=== PATIENT | female | born 1945 | race Caucasian/White ===

== ENCOUNTER 2016-10-14 11:20 | Inpatient (IN) ==
[2016-10-14] MEDS ORDERED: 0.9 % Sodium Chloride 1,000 ML IVC ONE (11:47)
--- NOTE | 2016-10-14 12:07 | Emergency Department Note ---
Disposition Clinical Impression: Lower GI bleed Diverticulosis of colon Qualifiers: Diverticulosis bleeding: diverticulosis with bleeding Qualified Code(s): K57.31 - Diverticulosis of large intestine without perforation or abscess with bleeding Anemia Qualifiers: Anemia type: unspecified type Qualified Code(s): D64.9 - Anemia, unspecified Disposition: Admitted As Inpatient Condition: Fair Time of Disposition: 15:19 GI Bleed HPI - General Chief complaint: ED GI Bleed Stated complaint: GI Bleed Source: patient, EMS Limitations: no limitations Nursing Notes Reviewed: Yes Vital Signs Reviewed: Yes - History of Present Illness HPI Narrative: 70-year-old female with a history of anemia presents complaining of blood in her stool as dark red for 3 days. She states that she has been dizzy and nauseated and last night began having bloody diarrhea. overnight she had 10 episodes of bloody diarrhea. She is currently dizzy, nauseated, sharp experiencing palpitations, weak. She denies chest pain, abdominal pain, fevers , chills. She does not take any blood thinners. She does note that she takes iron for her iron deficiency anemia. She had an echo done 1 month ago that she states was within normal limits. She was also put on vitamin D for treatment of her anemia. She occasionally takes ibuprofen but has not taken any recently. She does state that after her bowel movements this morning and she has had more back pain with walking. Patient denies any illness or trauma recently. She has never had a colonoscopy. The patient is adopted and does not know if there is any family history of colon cancer. - Related Data Home Medications Medication Instructions Recorded Confirmed Cholecalciferol (D-3) [Vitamin D] 1,000 unit PO DAILY 10/14/16 10/14/16 Enalapril Maleate [Vasotec] 10 mg PO BID 10/14/16 10/14/16 Ferrous Sulfate [Iron] 325 mg PO BID 10/14/16 10/14/16 Furosemide [Lasix] 40 mg PO DAILY 10/14/16 10/14/16 Naproxen [Naprosyn] 500 mg PO BID 10/14/16 10/14/16 Ranitidine HCl [Zantac] 150 mg PO BID 10/14/16 10/14/16 Allergies Allergy/AdvReac Type Severity Reaction Status Date / Time No Known Allergies Allergy Verified 10/14/16 12:03 Constitutional: Reports: weakness. Denies: fever, chills Cardiovascular: Reports: palpitations, dyspnea on exertion. Denies: chest pain Respiratory: Reports: dyspnea. Denies: cough, wheezes, hemoptysis Gastrointestinal: Reports: nausea, diarrhea. Denies: abdominal pain, vomiting, hematemesis Genitourinary: Denies: dysuria, hematuria Musculoskeletal: Reports: back pain Integumentary: Denies: rash Neurological: Reports: headache, weakness. Denies: numbness Past Medical History - Past Medical History Medical history: Reports: arthritis, GERD, hypertension, other Psychiatric history: Reports: depression - Social History Smoking Status: Never smoker Smokeless Tobacco Status: No Alcohol use: Reports: occasionally Drug use: Reports: none Physical Exam - General Limitations: no limitations General appearance: alert, lethargic, in distress - Head Head exam: atraumatic, normocephalic, normal inspection - Eye Eye exam: Present: PERRL, EOMI, other (pale conjunctiva) - ENT ENT exam: mucous membranes dry - Expanded ENT Exam Mouth exam: Present: other (pale mucous membranes) - Neck Neck exam: Present: normal inspection, full ROM, trachea midline - Chest Chest inspection: Present: normal inspection, symmetric chest wall rise. Absent : tenderness - Respiratory Respiratory exam: Present: normal lung sounds bilaterally. Absent: respiratory distress, wheezes, stridor, accessory muscle use - Cardiovascular Cardiovascular exam: Present: regular rate, normal rhythm, normal heart sounds. Absent: systolic murmur, diastolic murmur - Abdominal Exam Abdominal exam: Present: soft, Non-Tender, normal bowel sounds. Absent: tenderness, distention, guarding, rebound, rigidity - Rectal Exam Optical Instrument Inspector present during exam: No Rectal exam: Present: normal rectal tone, bloody stool. Absent: tenderness - Extremities Exam Extremities exam: Absent: pedal edema - Neurological Exam Neurological exam: Present: alert, oriented X3 - Psychiatric Psychiatric exam: Present: normal affect, normal mood - Skin Skin exam: Present: dry, intact, pallor. Absent: diaphoresis Course Course Narrative: 70-year-old female with a history of anemia presents complaining of blood in her stool as dark red for 3 days. She states that she has been dizzy and nauseated and last night began having bloody diarrhea. overnight she had 10 episodes of bloody diarrhea. She is currently dizzy, nauseated, sharp experiencing palpitations, weak. She denies chest pain, abdominal pain, fevers , chills. She does not take any blood thinners. She does note that she takes iron for her iron deficiency anemia. She had an echo done 1 month ago that she states was within normal limits. She was also put on vitamin D for treatment of her anemia. She occasionally takes ibuprofen but has not taken any recently. She does state that after her bowel movements this morning and she has had more back pain with walking. Patient denies any illness or trauma recently. She has never had a colonoscopy. The patient is adopted and does not know if there is any family history of colon cancer. HGB is 6.4. Renal CT scan shows diverticulosis with no evidence of diverticulitis. On exam patient appears pale with pale conjunctiva and pale mucous membranes. She appears to be in mild distress and lethargic. At times appears to be confused. Blood pressure was in 130s upon arrival however is now in the one teens. She states that yesterday was in the 90s. She is dizzy and confused even at rest. Bright blood with rectal exam. Discussed admission with the hospitalist service , Dr. Willard. He has accepted her for admission. I discussed the case with him he would like to have 2 units of blood type and crossmatched for the patient. I discussed this with the patient and she is agreeable with admission and transfusion. - Reevaluation(s) Reevaluation #1: Discussed the case with Dr. Willard who has accepted the patient to the hospitalist service. Time: 15:00 Vital Signs Temperature 98 F 10/14/16 11:20 Pulse Rate 82 10/14/16 11:20 Respiratory Rate 16 10/14/16 11:20 Blood Pressure 139/60 10/14/16 11:20 O2 Sat by Pulse Oximetry 100 10/14/16 11:20 Temperature 98 F 10/14/16 11:20 Pulse Rate 83 10/14/16 15:00 Respiratory Rate 16 10/14/16 15:00 Blood Pressure 122/67 10/14/16 15:00 O2 Sat by Pulse Oximetry 99 10/14/16 15:00 Oxygen Delivery Oxygen Delivery Room Air GI Bleed - Medical Records Medical records reviewed: Yes I reviewed the patient's medical records. - Lab Data Lab results reviewed: Yes I reviewed the patient's lab results. Result diagrams: 10/14/16 12:08 10/14/16 12:08 Lab Results 10/14/16 10/14/16 10/14/16 Range/Units 12:08 12:08 12:08 WBC 5.8 (4.3-11.1) K/mcL RBC 2.61 L (3.82-4.97) M/mcL Hgb 6.8 L (11.5-15.4) g/dL Hct 22.3 L (35.3-44.9) % MCV 85.4 (83.0-100.0) fL MCH 26.1 L (28.0-33.3) pg MCHC 30.5 L (31.6-35.5) g/dL RDW TNP Plt Count 324 (140-400) K/mcL MPV 8.9 L (9.4-12.4) fL Immature Gran % 0.9 (0-4) % Seg Neutrophils % 68.3 % Lymphocytes % 23.8 % Monocytes % 6.1 % Eosinophils % 0.7 % Basophils % 0.2 % Neutrophils # 4.0 (1.6-8.9) K/mcL Lymphocytes # 1.4 (0.6-4.6) K/mcL Monocytes # 0.4 (0.0-1.3) K/mcL Eosinophils # 0.0 (0.0-0.6) K/mcL Basophils # 0.0 (0.0-0.2) K/mcL Platelet Estimate Normal (Normal) Anisocytosis 1+ A (Not Present) Ovalocytes 1+ A (Not Present) PT 10.6 (9.4-12.1) Seconds INR 1.0 APTT 26.8 (26.0-36.0) Seconds Sodium 139 (136-145) mEq/L Potassium 4.4 (3.5-4.5) mEq/L Chloride 111 H (98-109) mEq/L Carbon Dioxide 22 (19-29) mEq/L BUN 21 H (7-20) mg/dL Creatinine 0.71 (0.57-1.11) mg/dL Est GFR ( Amer) > 60 (> 60) Est GFR (Non-Af Amer) > 60 (> 60) BUN/Creatinine Ratio 30 H (6-26) Glucose 109 H (70-99) mg/dL Calculated Osmolality 292 (280-300) Lactic Acid (0.5-2.2) mmol/L Calcium 9.1 (8.6-10.8) mg/dL Total Bilirubin 0.3 (0.2-1.2) mg/dL AST 12 (5-34) Units/L ALT 13 (0-55) Units/L Alkaline Phosphatase 73 (38-126) Units/L Serum Total Protein 5.6 L (6.0-8.3) g/dL Albumin 3.2 L (3.5-5.0) g/dL Globulin 2.4 (2.4-3.5) g/dL Albumin/Globulin Ratio 1.3 (1.1-2.2) Blood Type Antibody Screen Crossmatch 10/14/16 10/14/16 Range/Units 12:08 12:08 WBC (4.3-11.1) K/mcL RBC (3.82-4.97) M/mcL Hgb (11.5-15.4) g/dL Hct (35.3-44.9) % MCV (83.0-100.0) fL MCH (28.0-33.3) pg MCHC (31.6-35.5) g/dL RDW Plt Count (140-400) K/mcL MPV (9.4-12.4) fL Immature Gran % (0-4) % Seg Neutrophils % % Lymphocytes % % Monocytes % % Eosinophils % % Basophils % % Neutrophils # (1.6-8.9) K/mcL Lymphocytes # (0.6-4.6) K/mcL Monocytes # (0.0-1.3) K/mcL Eosinophils # (0.0-0.6) K/mcL Basophils # (0.0-0.2) K/mcL Platelet Estimate (Normal) Anisocytosis (Not Present) Ovalocytes (Not Present) PT (9.4-12.1) Seconds INR APTT (26.0-36.0) Seconds Sodium (136-145) mEq/L Potassium (3.5-4.5) mEq/L Chloride (98-109) mEq/L Carbon Dioxide (19-29) mEq/L BUN (7-20) mg/dL Creatinine (0.57-1.11) mg/dL Est GFR ( Amer) (> 60) Est GFR (Non-Af Amer) (> 60) BUN/Creatinine Ratio (6-26) Glucose (70-99) mg/dL Calculated Osmolality (280-300) Lactic Acid 0.9 (0.5-2.2) mmol/L Calcium (8.6-10.8) mg/dL Total Bilirubin (0.2-1.2) mg/dL AST (5-34) Units/L ALT (0-55) Units/L Alkaline Phosphatase (38-126) Units/L Serum Total Protein (6.0-8.3) g/dL Albumin (3.5-5.0) g/dL Globulin (2.4-3.5) g/dL Albumin/Globulin Ratio (1.1-2.2) Blood Type A POSITIVE Antibody Screen NEGATIVE Crossmatch See Detail - Radiology Data Radiology results reviewed: Yes I reviewed the patient's radiology results. Abdomen/Pelvis CT 10/14/16 11:50 IMPRESSION: No acute intra-abdominal process is appreciated. Colonic diverticulosis without convincing evidence of acute diverticulitis detected. If symptoms persist or worsen the study could be repeated with oral contrast to better evaluate the bowel wall. D/ / Obed Story MD / Obed Story MD Interpreting Provider: Obed Story MD - EKG Data EKG attestation: Yes I reviewed and interpreted this EKG. EKG results narrative: sinus rhythm with sinus arrhythmia vr 73bpm, pr 173ms, qt 361ms When compared to previous EKG there are: previous EKG unavailable Critical Care Time Critical Care Time: Yes Total Critical Care Time: 35 Attestation: Critical care time for this patient exclusive of any billable procedures was 35 minutes. Attestation Statement - Attestation Attestation: Patient was seen with resident physician. I reviewed the history, physical, assessment and plan, and agree with the findings. I also personally evaluated this patient and had [id number] time with this patient. 70-year-old female presents to the emergency department with multiple episodes of dark blood per rectum. Patient states that she has had numerous episodes of dark bloody diarrhea, and now has gotten dizzy. She also feels lightheaded and fatigued. She denies significant abdominal pains that she has some cramps or before she goes to the bathroom. On exam patient appears pale her heart is regular rhythm and rate. Abdomen is soft and no tenderness could be elicited with palpation. Lungs are clear. Extremities are unremarkable. We will do workup for GI bleed and admit for same. Patient's CT scan revealed diverticulosis. Her blood levels were significantly lower than it should be, and transfusion of 2 units was started while in the emergency department. Her blood pressure remained over 100 systolic while she was here and this was closely monitored. Hospitalist was notified and admission was arranged. I agree with resident physician assessment and plan. Critical care time for this patient was 35 minutes.
[2016-10-14 12:15] LABS: Basophils % 0.2 %; Eosinophils % 0.7 %; Hematocrit 22.3 % (35.3-44.9); Hemoglobin 6.8 g/dL (11.5-15.4); Immature Granulocytes % 0.9 % (0-4); Lymphocytes # 1.4 K/mcL (0.6-4.6); Lymphocytes % 23.8 %; Mean Corpuscular HGB Conc 30.5 g/dL (31.6-35.5); Mean Corpuscular Hemoglobin 26.1 pg (28.0-33.3); Mean Corpuscular Volume 85.4 fL (83.0-100.0); Mean Platelet Volume 8.9 fL (9.4-12.4); Monocytes # 0.4 K/mcL (0.0-1.3); Monocytes % 6.1 %; Platelet Count 324 K/mcL (140-400); Red Blood Count 2.61 M/mcL (3.82-4.97); Segmented Neutrophils % 68.3 %
[2016-10-14 12:21] LABS: Prothrombin Time 10.6 Seconds (9.4-12.1)
[2016-10-14 12:23] LABS: Activated Partial Thrombo Time 26.8 Seconds (26.0-36.0)
[2016-10-14 12:29] LABS: Alanine Aminotransferase 13 Units/L (0-55); Albumin 3.2 g/dL (3.5-5.0); Albumin/Globulin Ratio 1.3 (1.1-2.2); Alkaline Phosphatase 73 Units/L (38-126); Aspartate Amino Transferase 12 Units/L (5-34); BUN/Creatinine Ratio 30 (6-26); Bilirubin,Total 0.3 mg/dL (0.2-1.2); Blood Urea Nitrogen 21 mg/dL (7-20); Calcium 9.1 mg/dL (8.6-10.8); Carbon Dioxide 22 mEq/L (19-29); Chloride 111 mEq/L (98-109); Globulin 2.4 g/dL (2.4-3.5); Glucose 109 mg/dL (70-99); Osmolality,Calculated 292 (280-300); Potassium 4.4 mEq/L (3.5-4.5); Sodium 139 mEq/L (136-145); Total Protein 5.6 g/dL (6.0-8.3); eGFR For African Americans > 60 (> 60); eGFR For Non-African Americans > 60 (> 60)
[2016-10-14 12:30] LABS: Anisocytosis 1+ (Not Present); Ovalocytes 1+ (Not Present); Platelet Estimate Normal (Normal)
[2016-10-14] MEDS ORDERED: Naloxone 0.4 MG/ML INJ IVP PRN (16:43)
[2016-10-14] MEDS ORDERED: Ondansetron 4 MG/2 ML VIAL IVP PRN (16:43)
[2016-10-14] MEDS ORDERED: 0.9 % Sodium Chloride 250 ML ONE ×2 (16:54→20:12)
--- NOTE | 2016-10-14 17:22 | Internal Med History&Physical ---
<Sharri Craven M - Last Filed: 10/14/16 21:13> Date of Encounter: 10/14/16 Time of Encounter: 17:10 Assessment and Plan (1) Lower GI bleed Current visit: Yes Status: Acute Patient with multiple episodes of bloody stools over the last several days. Now with lightheadedness, weakness and shortness of breath. Blood seen on rectal exam. Hgb 6.8. NPO Transfuse 2u Packed RBCs check Hgb/Hct Q6 hours Consult to Surgery for GI bleed, spoke with Dr. Luque, they plan to see patient in the morning. (2) Anemia Current visit: Yes Status: Acute Patient with multiple episodes of bloody stool over the last several days, with weakness, shortness of breath and lightheadedness. Hgb found to be 6.8. Hemodynamically stable with blood pressure 110s-130s and HR in 80s Orders to transfuse 2u of packed red blood cells. check Hgb/Hct Q6 hours titrate oxygen to maintain O2 saturation > 92% Qualifiers: Anemia type: iron deficiency Iron deficiency anemia type: chronic blood loss Qualified Code(s): D50.0 - Iron deficiency anemia secondary to blood loss (chronic) (3) Diverticulosis of colon Current visit: Yes Status: Acute Patient with multiple episodes of bloody stools. CT abdomen/pelvis showed colonic diverticulosis without convincing evidence of acute diverticulitis. Consult to surgery for GI bleed. NPO IV fluids 0.9NS at 125mL/hr. Qualifiers: Diverticulosis bleeding: diverticulosis with bleeding Qualified Code(s): K57.31 - Diverticulosis of large intestine without perforation or abscess with bleeding (4) DVT prophylaxis Current visit: Yes Status: Acute Up to chair BID, and ambulate with assistance as tolerated anti-embolic stockings Pharmacologic prophylaxis contraindicated in patient with active GI bleed. Internal Medicine - H&P: HPI Chief complaint: Rectal bleeding Admitted From: Emergency Dept Plans for Post Hospital Care: Home History of present illness: Ms. Gonzalez is a 70 year old female with history of anemia, hypertension and arthritis presented to the ED after having multiple episodes of bloody stools over the last several days and increasing dizziness and lightheadedness. She reports she first noted the bloody stool 3 days ago. She was able to continue to go about her normal activities and even went to work yesterday. However, overnight last night she reports she had 10 episodes of bloody stool, and this morning she felt so weak, dizzy, lightheaded and short of breath that she called for the squad. She denies any nausea, vomiting or abdominal pain. She denies any chest pain or palpitations. Of note, she was worked up for dyspnea on exertion about a month ago and was found to be anemic at that time. She was started on iron. She also takes naproxen daily for her arthritis. Evaluation in the ED was significant for Hgb of 6.8. Her vital signs were stable with blood pressures running 110s-130s, heart rate in 80s. CT of the abdomen revealed diverticulosis. On exam, patient appears pale, with pale conjunctiva. She is drowsy, but alert when aroused, oriented, and in no distress. Heart has regular rate and rhythm and lungs are clear to ascultation. Abdomen has normal bowel sounds and mild diffuse tenderness. Past Med Surg Social Fam HX - Past Medical History Medical history: arthritis, GERD, hypertension, other Psychiatric history: depression - Past Surgical History Surgical History: other (tubal ligation) - Social History Smoking Status: Never smoker Smokeless Tobacco Status: No Alcohol use: occasionally Drug use: none - Family History Mother History Unknown: Yes Adopted: Yes Internal Medicine - H&P: Meds Cholecalciferol (D-3) [Vitamin D] 1,000 unit PO DAILY 10/14/16 [History] Enalapril Maleate [Vasotec] 10 mg PO BID 10/14/16 [History] Ferrous Sulfate [Iron] 325 mg PO BID 10/14/16 [History] Furosemide [Lasix] 40 mg PO DAILY 10/14/16 [History] Naproxen [Naprosyn] 500 mg PO BID 10/14/16 [History] Ranitidine HCl [Zantac] 150 mg PO BID 10/14/16 [History] Allergies No Known Allergies Allergy (Verified 10/14/16 12:03) All Systems PM: A 10-system review of systems was performed and is negative for pertinent findings except as documented above in the HPI. - Constitutional Constitutional: weakness, no chills, no fever(s), no night sweats - EENT Eyes: no change in vision, no discharge, no pain, no photophobia Ears: no ear discharge, no ear pain, no tinnitus Nose, mouth and throat: dry mouth, no dysphagia, no nasal discharge, no neck pain, no sore throat - Cardiovascular Cardiovascular ROS IM: dyspnea on exertion, lightheadedness, no chest pain, no diaphoresis, no dyspnea, no palpitations, no syncope - Respiratory Respiratory: dyspnea on exertion, no cough, no dyspnea, no wheezing, no excessive phlegm production - Gastrointestinal Gastrointestinal: diarrhea, hematochezia, no abdominal pain, no hematemesis, no melena, no nausea, no vomiting - Genitourinary Genitourinary: no change in urinary stream, no dysuria, no flank pain, no hematuria - Musculoskeletal Musculoskeletal ROS IM: no numbness, no tingling - Integumentary Integumentary IM: no rash, no unusual bruising - Neurological Neurological ROS: no confusion, no convulsions, no focal weakness, no numbness, no tingling, no tremor(s) - Hematologic/Lymphatic Hematologic/Lymphatic: no easy bruising - Constitutional Vitals: Temp Pulse Resp BP Pulse Ox 98.5 F 91 16 137/73 100 10/14/16 17:01 10/14/16 17:01 10/14/16 17:01 10/14/16 17:01 10/14/16 17:01 Internal Med - H&P Results - Labs CBC & Chem 7: 10/14/16 12:08 10/14/16 12:08 <Chapito Willard - Last Filed: 10/15/16 09:23> Date of Encounter: 10/15/16 Internal Medicine - H&P: HPI History of present illness: Ms. Gonzalez is a 70 year old female All Systems PM: A 10-system review of systems was performed and is negative for pertinent findings except as documented above in the HPI. - Constitutional Vitals: Temp Pulse Resp BP Pulse Ox 98.8 F 68 16 127/81 98 10/15/16 08:01 10/15/16 08:01 10/15/16 08:01 10/15/16 08:01 10/15/16 08:01 General appearance: Present: A&O X 3 Exam: Pale - Eye Eye exam: Present: PERRL, conjuntiva pink, sclera anicteric Pupils: Present: PERRL - Respiratory Respiratory exam: Present: CTAB. Absent: accessory muscle use, rales, rhonchi, wheezes - Cardiovascular Cardiovascular exam: Present: RRR, +S1, +S2. Absent: diastolic murmur, gallop, rubs, systolic murmur - GI/Abdominal GI/Abdominal exam: Present: normal bowel sounds, soft, no peritoneal signs. Absent: distended, tenderness - Extremities Exam Extremities exam: Present: warm, radial pulses palpable and symetrical. Absent : calf tenderness, cyanotic, pedal edema - Neurological Exam Neurological exam: Present: CN II-XII intact, oriented X3, no focal deficits. Absent: pronater drift, facial droop, speech deficit - Skin Skin exam: Present: dry, intact Internal Med - H&P Results - Labs CBC & Chem 7: 10/15/16 01:08 10/14/16 12:08 Labs: Short CBC 10/15/16 Range/Units 01:08 WBC 5.8 (4.3-11.1) K/mcL Hgb 8.2 L (11.5-15.4) g/dL Hct 25.9 L (35.3-44.9) % Plt Count 265 (140-400) K/mcL Neutrophils # 2.9 (1.6-8.9) K/mcL - Attending Attestation I examined this patient and my medical decision-making was reviewed with the Advanced Practice Provider. I agree with the documented findings, disposition and treatment plan as described except to the extent set forth below. Patient presented to the hospital with rectal bleeding. On exam she is pale ill appearing. Heart is regular S1-S2. Abdomen soft nontender nondistended. Plan: Transfuse 2 units PRBC. Check CBC every 12 hours. Consult surgery.
[2016-10-14] MEDS ORDERED: 0.9 % Sodium Chloride 1,000 ML IVC SCH (17:45)
[2016-10-14] MEDS: Pantoprazole 40 MG VIAL IVP SCH (18:50)
[2016-10-14] MEDS ORDERED: *HR* HYDROcodone/Acet 5/325 mg TABLET PO ONE (22:51)
[2016-10-14] MEDS: 0.9 % Sodium Chloride 1,000 ML IVC SCH (23:16)
[2016-10-15 01:16] LABS: Eosinophils # 0.1 K/mcL (0.0-0.6); Eosinophils % 1.6 %; Hematocrit 25.9 % (35.3-44.9); Hemoglobin 8.2 g/dL (11.5-15.4); Immature Granulocytes % 0.5 % (0-4); Lymphocytes # 2.3 K/mcL (0.6-4.6); Lymphocytes % 40.6 %; Mean Corpuscular HGB Conc 31.7 g/dL (31.6-35.5); Mean Corpuscular Hemoglobin 27.3 pg (28.0-33.3); Mean Corpuscular Volume 86.3 fL (83.0-100.0); Mean Platelet Volume 8.7 fL (9.4-12.4); Monocytes # 0.4 K/mcL (0.0-1.3); Monocytes % 6.9 %; Neutrophils # 2.9 K/mcL (1.6-8.9); Nucleated Red Blood Cells 0.3 /100 WBC (0); Platelet Count 265 K/mcL (140-400); Red Cell Distribution Width 21.4 % (11.5-14.5); Segmented Neutrophils % 50.4 %
[2016-10-15] MEDS: Pantoprazole 40 MG VIAL IVP SCH (07:29)
[2016-10-15] MEDS ORDERED: *HR* Morphine 2 MG/ML SYRINGE IVP PRN (09:40)
[2016-10-15] MEDS: 0.9 % Sodium Chloride 1,000 ML IVC SCH ×2 (09:44→11:38)
[2016-10-15] MEDS: *HR* HYDROcodone/Acet 5/325 mg TABLET PO PRN ×2 (11:37→19:57)
[2016-10-15] MEDS ORDERED: Polyethylene Glycol 3350 255 GM POWDER PO ONE (12:09)
--- NOTE | 2016-10-15 15:13 | General Surgery Consult Note ---
Date of Encounter: 10/15/16 Time of Encounter: 10:45 Assessment and Plan (1) Melena Current Visit: Yes Status: Acute complaints of melena - unsure if due to her iron supplements or due to bleeding Patient has never previously had a colonoscopy Will plan colonoscopy and EGD with IV medication, risks and benefits discussed with the patient and she wishes to proceed. We will do the EGD since she has been on naproxen daily for years Clear liquid diet today, bowel prep today, nothing by mouth at midnight (2) Anemia Current Visit: Yes Status: Acute Patient has been transfused 2 units of blood. Hemoglobins appear to be stable currently Qualifiers: Anemia type: iron deficiency Iron deficiency anemia type: chronic blood loss Qualified Code(s): D50.0 - Iron deficiency anemia secondary to blood loss (chronic) (3) Diverticulosis of colon Current Visit: Yes Status: Acute Diverticulosis of the colon seen on CT scan Qualifiers: Diverticulosis bleeding: diverticulosis with bleeding Qualified Code(s): K57.31 - Diverticulosis of large intestine without perforation or abscess with bleeding History of Present Illness Consult date: 10/15/16 History of present illness: Patient is a 70-year-old female who is never previously had a colonoscopy. She does not know her biological family history as she is adopted. Patient denies any abdominal pain. She has taken 200 mg of naproxen every day for years and also is on a Zantac for this. She denies any heartburn or reflux symptoms. She states that this past Sunday she started having initially black dark stools. She thought this was due to the iron that she has been taking for approximately month now due to anemia diagnosed by her primary care. She has also been taking vitamin D. The black stools continued up to Sunday and she had about 10 episodes of diarrhea on Sunday as well. She denied any abdominal pain at that time. She has been short of breath and somewhat dizzy. He denies any bright red blood per rectum. Past Med Surg Social Fam HX - Past Medical History Source: patient Medical history: arthritis, GERD, hypertension, other (Detached retina, cataracts) Psychiatric history: depression - Past Surgical History Surgical History: other (tubal ligation, tonsils and adenoidectomy, bilateral eye surgery as a child) - Social History Smoking Status: Never smoker Smokeless Tobacco Status: No Alcohol use: occasionally Drug use: none - Family History Mother History Unknown: Yes Adopted: Yes Medications and Allergies Cholecalciferol (D-3) [Vitamin D] 1,000 unit PO DAILY 10/14/16 [History] Enalapril Maleate [Vasotec] 10 mg PO BID 10/14/16 [History] Ferrous Sulfate [Iron] 325 mg PO BID 10/14/16 [History] Furosemide [Lasix] 40 mg PO DAILY 10/14/16 [History] Naproxen [Naprosyn] 500 mg PO BID 10/14/16 [History] Ranitidine HCl [Zantac] 150 mg PO BID 10/14/16 [History] Allergies No Known Allergies Allergy (Verified 10/14/16 12:03) Review of Systems All systems PM: reviewed and no additional remarkable complaints except as stated All systems PM: A 10-system review of systems was performed and is negative for pertinent findings except as documented above in the HPI. - Constitutional lethargy, malaise, no fever(s), no night sweats, no weakness - EENT Nose, mouth and throat: as per HPI - Cardiovascular no chest pain - Respiratory dyspnea on exertion - Gastrointestinal diarrhea, melena, no abdominal pain, no cramping, no dyspepsia, no heartburn, no hematochezia General Surgery Exam Initial Vital Signs Temp Pulse Resp BP Pulse Ox 98 F 82 16 139/60 100 10/14/16 11:20 10/14/16 11:20 10/14/16 11:20 10/14/16 11:20 10/14/16 11:20 - General physical appearance well developed, well nourished, no distress, no pain - Eyes PERRL, normal ocular movement - ENT normal mucosa, atraumatic, normocephalic - Neck trachea midline - Respiratory normal respiratory effort, clear to auscultation - Cardiovascular Cardiovascular exam: Present: RRR, no murmurs/rubs/gallops - Abdomen Abdomen general surgery: Present: bowel sounds present, soft, non tender. Absent: distended, guarding, rebound - Integumentary Integumentary general surgery: Present: warm and dry, no abnormal pigmentation - Neurologic Present: CN 2-12 grossly intact - Musculoskeletal Present: normal gait, normal posture - Psychiatric Psychiatric general surgery: Present: A&Ox3, speech is normal Exam Initial Vital Signs Temp Pulse Resp BP Pulse Ox 98 F 82 16 139/60 100 10/14/16 11:20 10/14/16 11:20 10/14/16 11:20 10/14/16 11:20 10/14/16 11:20 Results - Labs 10/15/16 01:08 10/14/16 12:08 Short CBC 10/15/16 Range/Units 01:08 WBC 5.8 (4.3-11.1) K/mcL Hgb 8.2 L (11.5-15.4) g/dL Hct 25.9 L (35.3-44.9) % Plt Count 265 (140-400) K/mcL Neutrophils # 2.9 (1.6-8.9) K/mcL Vital Signs Temp Pulse Resp BP Pulse Ox 10/15/16 10:24 97.8 F 82 16 115/71 97 10/15/16 08:01 98.8 F 68 16 127/81 98 10/15/16 03:21 97.6 F 77 16 111/69 96 10/14/16 23:11 98.0 F 78 14 124/78 97 10/14/16 20:38 98.0 F 81 14 125/78 97 10/14/16 20:25 97.7 F 81 16 138/79 100 10/14/16 20:13 97.7 F 81 16 138/79 100 10/14/16 19:50 0 0/0 10/14/16 17:16 98.6 F 88 16 137/73 100 10/14/16 17:01 98.5 F 91 16 137/73 100 Intake and Output 10/14/16 10/15/16 10/15/16 23:59 07:59 15:59 Intake Total 1200 / 1200 0 / 0 1840 / 1840 Output Total 700 / 700 450 / 450 200 / 200 Balance 500 / 500 -450 / -450 1640 / 1640 Intake: IV Fluids 1000 / 1000 0.9 % Sodium Chloride 1, 1000 / 1000 000 ML @ 100 mls/hr IVC . Q10H [facility] Rx#:[id number] Oral 0 / 0 840 / 840 Blood Product 1200 / 1200 Rbcs Leuko Poor As-1 850 / 850 Unit [id number] Rbcs Leuko Poor As-3 350 / 350 Unit [id number] Output: Urine 700 / 700 450 / 450 200 / 200 Other: Meal Lunch Percent of Meal Consumed 100% Stool Size Small Stool Consistency formed Stool Color Brown # Bowel Movements 0 Weight 76.566 kg Blood Glucose* 102 - Imaging CT scan - abdomen: report reviewed CT scan - pelvis: report reviewed Consult Discharge Plan - Plan Referrals: Chaz Mccabe MD [Primary Care Provider] -
--- NOTE | 2016-10-15 15:38 | Internal Med Progress Note ---
Date of Encounter: 10/15/16 Time of Encounter: 15:36 - Assessment and plan (1) Anemia Current Visit: Yes Status: Acute Assessment and plan: Severe symptomatic anemia, Hb on admission 6.8, has received 2 units of prbc. Hb today 8.2, will continue monitoring and transfuse accordingly. Qualifiers: Anemia type: iron deficiency Iron deficiency anemia type: chronic blood loss Qualified Code(s): D50.0 - Iron deficiency anemia secondary to blood loss (chronic) (2) DVT prophylaxis Current Visit: Yes Status: Acute Assessment and plan: No heparin due to bleeding. (3) Lower GI bleed Current Visit: Yes Status: Acute Assessment and plan: Will undergo colonoscopy tomorrow. Colon prep today. (4) Melena Current Visit: Yes Status: Acute Assessment and plan: EGD tomorrow. NPO after midnight. - Time Spent With Patient 25 - 35 minutes - Subjective Interval history: This is my first encounter with the patient. She denies chest pain, shortness of breath. Never had endoscopic studies done. - Constitutional Vitals: Temp Pulse Resp BP Pulse Ox 98.2 F 76 16 118/74 98 10/15/16 14:35 10/15/16 14:35 10/15/16 14:35 10/15/16 14:35 10/15/16 14:35 General appearance: Present: A&O X 3 - Head Head exam: Present: atraumatic, normocephalic - Eye Eye exam: Present: PERRL, conjuntiva pink, sclera anicteric Pupils: Present: PERRL - Neck Neck exam general surgery: Present: supple, trachea midline. Absent: lymphadenopathy - Respiratory Respiratory exam: Present: CTAB. Absent: accessory muscle use, rales, rhonchi, wheezes - Cardiovascular Cardiovascular exam: Present: RRR, +S1, +S2. Absent: diastolic murmur, gallop, rubs, systolic murmur - GI/Abdominal GI/Abdominal exam: Present: normal bowel sounds, soft, no peritoneal signs. Absent: distended, tenderness - Extremities Exam Extremities exam: Present: warm, radial pulses palpable and symetrical. Absent : calf tenderness, cyanotic, pedal edema - Neurological Exam Neurological exam: Present: CN II-XII intact, oriented X3, no focal deficits. Absent: pronater drift, facial droop, speech deficit - Skin Skin exam: Present: dry, intact Internal Medicine: Result - Labs CBC & Chem 7: 10/15/16 01:08 10/14/16 12:08 Labs: Short CBC 10/15/16 Range/Units 01:08 WBC 5.8 (4.3-11.1) K/mcL Hgb 8.2 L (11.5-15.4) g/dL Hct 25.9 L (35.3-44.9) % Plt Count 265 (140-400) K/mcL Neutrophils # 2.9 (1.6-8.9) K/mcL - ABG Interpretation ABG results: PT/INR, D-dimer PT 10.6 Seconds (9.4-12.1) 10/14/16 12:08 Consult Discharge Plan - Plan Referrals: Chaz Mccabe MD [Primary Care Provider] -
--- NOTE | 2016-10-16 00:17 | Electrocardiograph Report ---
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
[2016-10-16] MEDS: *HR* HYDROcodone/Acet 5/325 mg TABLET PO PRN ×3 (01:59→22:36)
[2016-10-16] MEDS: 0.9 % Sodium Chloride 1,000 ML IVC SCH ×2 (02:00→23:44)
[2016-10-16 04:35] LABS: Eosinophils # 0.1 K/mcL (0.0-0.6); Eosinophils % 1.5 %; Hematocrit 26.6 % (35.3-44.9); Hemoglobin 8.3 g/dL (11.5-15.4); Immature Granulocytes % 0.6 % (0-4); Lymphocytes % 42.9 %; Mean Corpuscular HGB Conc 31.2 g/dL (31.6-35.5); Mean Corpuscular Hemoglobin 27.6 pg (28.0-33.3); Mean Corpuscular Volume 88.4 fL (83.0-100.0); Mean Platelet Volume 9.1 fL (9.4-12.4); Monocytes # 0.4 K/mcL (0.0-1.3); Monocytes % 7.8 %; Neutrophils # 2.2 K/mcL (1.6-8.9); Nucleated Red Blood Cells 0.4 /100 WBC (0); Platelet Count 299 K/mcL (140-400); Red Blood Count 3.01 M/mcL (3.82-4.97); Red Cell Distribution Width 22.1 % (11.5-14.5); Segmented Neutrophils % 47.2 %
[2016-10-16 04:50] LABS: BUN/Creatinine Ratio 8 (6-26); Calcium 9.2 mg/dL (8.6-10.8); Carbon Dioxide 23 mEq/L (19-29); Chloride 113 mEq/L (98-109); Glucose 95 mg/dL (70-99); Osmolality,Calculated 295 (280-300); Potassium 3.5 mEq/L (3.5-4.5); Sodium 144 mEq/L (136-145); eGFR For African Americans > 60 (> 60); eGFR For Non-African Americans > 60 (> 60)
[2016-10-16 04:51] LABS: Blood Urea Nitrogen 5 mg/dL (7-20)
[2016-10-16] MEDS: Pantoprazole 40 MG VIAL IVP SCH (07:43)
--- NOTE | 2016-10-16 08:17 | Internal Med Progress Note ---
<Smai Trejo - Last Filed: 10/16/16 13:55> Date of Encounter: 10/16/16 Time of Encounter: 08:17 - Assessment and plan (1) Blood loss anemia Current Visit: Yes Status: Acute Assessment and plan: S/p two units of PRBCs, hgb stable at 8.3, no sign of active bleeding, endoscopy consulted, EGD/Colonoscopy today. (2) Melena Current Visit: Yes Status: Acute Assessment and plan: Hx of chronic NSAID use, hgb drop is consistent with several episodes of melena , s/p two units of PRBCs, hgb stable, upper/lower endoscopy today. (3) DVT prophylaxis Current Visit: Yes Status: Acute Assessment and plan: IPCs. - Subjective Interval history: Pt seen and examined, last bowel movement was last night and it was normal, no black/bloody stools. No abd pain. - Constitutional Vitals: Temp Pulse Resp BP Pulse Ox 97.9 F 70 14 119/73 96 10/16/16 07:45 10/16/16 07:45 10/16/16 07:45 10/16/16 07:45 10/16/16 07:45 General appearance: Present: cooperative, A&O X 3, pleasant, no acute distress, answers questions appropriately - Head Head exam: Present: atraumatic, normocephalic - Eye Eye exam: Present: PERRL, conjuntiva pink, sclera anicteric Pupils: Present: PERRL - Neck Neck exam general surgery: Present: supple, trachea midline. Absent: lymphadenopathy - Respiratory Respiratory exam: Present: CTAB. Absent: accessory muscle use, rales, rhonchi, wheezes - Cardiovascular Cardiovascular exam: Present: RRR, +S1, +S2. Absent: diastolic murmur, gallop, rubs, systolic murmur - GI/Abdominal GI/Abdominal exam: Present: normal bowel sounds, soft, no peritoneal signs. Absent: distended, tenderness - Extremities Exam Extremities exam: Present: warm, radial pulses palpable and symetrical. Absent : calf tenderness, cyanotic, pedal edema - Neurological Exam Neurological exam: Present: CN II-XII intact, oriented X3, no focal deficits. Absent: pronater drift, facial droop, speech deficit - Skin Skin exam: Present: dry, intact Internal Medicine: Result - Labs CBC & Chem 7: 10/16/16 03:53 10/16/16 03:53 Labs: Short CBC 10/16/16 Range/Units 03:53 WBC 4.8 (4.3-11.1) K/mcL Hgb 8.3 L (11.5-15.4) g/dL Hct 26.6 L (35.3-44.9) % Plt Count 299 (140-400) K/mcL Neutrophils # 2.2 (1.6-8.9) K/mcL BMP 10/16/16 03:53 Sodium 144 Potassium 3.5 Chloride 113 H Carbon Dioxide 23 BUN 5 L D Creatinine 0.63 Glucose 95 Calcium 9.2 - ABG Interpretation ABG results: PT/INR, D-dimer PT 10.6 Seconds (9.4-12.1) 10/14/16 12:08 Consult Discharge Plan - Plan Referrals: Chaz Mccabe MD [Primary Care Provider] - <Kimo Salter - Last Filed: 10/16/16 17:21> - Assessment and plan (1) Anemia Current Visit: Yes Status: Acute Qualifiers: Anemia type: iron deficiency Iron deficiency anemia type: chronic blood loss Qualified Code(s): D50.0 - Iron deficiency anemia secondary to blood loss (chronic) (2) DVT prophylaxis Current Visit: Yes Status: Acute (3) Lower GI bleed Current Visit: Yes Status: Acute (4) Melena Current Visit: Yes Status: Acute - Constitutional Vitals: Temp Pulse Resp BP Pulse Ox 98.6 F 69 12 132/64 100 10/16/16 16:46 10/16/16 16:46 10/16/16 16:46 10/16/16 16:46 10/16/16 16:46 Internal Medicine: Result - Labs CBC & Chem 7: 10/16/16 03:53 10/16/16 03:53 Labs: Short CBC 10/16/16 Range/Units 03:53 WBC 4.8 (4.3-11.1) K/mcL Hgb 8.3 L (11.5-15.4) g/dL Hct 26.6 L (35.3-44.9) % Plt Count 299 (140-400) K/mcL Neutrophils # 2.2 (1.6-8.9) K/mcL BMP 10/16/16 03:53 Sodium 144 Potassium 3.5 Chloride 113 H Carbon Dioxide 23 BUN 5 L D Creatinine 0.63 Glucose 95 Calcium 9.2 - ABG Interpretation ABG results: PT/INR, D-dimer PT 10.6 Seconds (9.4-12.1) 10/14/16 12:08 - Attending Attestation I agree with the physical examination findings, assessment and plan documented by the resident Dr. Sami Trejo. I examined the patient independently. Ms. Gonzalez was admitted due to GI bleeding, she did receive blood transfusion ( 2 units of prbc upon admission), her hemoglobin is stable. We will continue monitoring her hemoglobin and follow-up endoscopic studies.
[2016-10-16] MEDS ORDERED: *HR* Promethazine 25 MG/ML VIAL IVP ONE (13:57)
[2016-10-16] MEDS ORDERED: Tetracaine/Benzocaine/Butamben 200MG/SPRAY (100SPY/BOT) MM ONE (13:57)
[2016-10-16] MEDS ORDERED: Simethicone 40 MG/0.6 ML MLS IR ONE (13:57)
[2016-10-16] MEDS ORDERED: *HR* Midazolam HCl 5 MG/5 ML VIAL IVP ONE (15:19)
[2016-10-16] MEDS ORDERED: *HR* FentaNYL (PF) 100 MCG/2 ML VIAL ONE (15:19)
[2016-10-16] MEDS: *HR* Midazolam HCl 5 MG/5 ML VIAL IVP PRN ×2 (15:48→16:00)
[2016-10-16] MEDS ORDERED: *HR* FentaNYL (PF) 100 MCG/2 ML VIAL IVP PRN (16:00)
--- NOTE | 2016-10-16 16:36 | Event Note ---
Date of Encounter: 10/16/16 Time of Encounter: 16:34 EGD with no signs of bleeding, only abnormal z-line, hiatal hernia and hyeremia of the stomach colonoscopy showed diverticulosis, old blood in transverse, descending and sigmoid, none in cecum no masses or lesions, no obvious bleeding recommend repeat colonoscopy in 10 yrs high fiber diet, daily fiber supplement such as gummy fibers 2 po daily or metamucil capsules 2 po daily
[2016-10-16] MEDS: Psyllium 1 PACKET POWD.PACK PO SCH (22:25)
[2016-10-17 04:50] LABS: Basophils % 0.2 %; Eosinophils # 0.1 K/mcL (0.0-0.6); Eosinophils % 1.6 %; Hematocrit 25.7 % (35.3-44.9); Hemoglobin 7.9 g/dL (11.5-15.4); Immature Granulocytes % 0.3 % (0-4); Lymphocytes % 34.2 %; Mean Corpuscular HGB Conc 30.7 g/dL (31.6-35.5); Mean Corpuscular Hemoglobin 27.2 pg (28.0-33.3); Mean Corpuscular Volume 88.6 fL (83.0-100.0); Mean Platelet Volume 8.7 fL (9.4-12.4); Monocytes # 0.5 K/mcL (0.0-1.3); Monocytes % 8.2 %; Neutrophils # 3.2 K/mcL (1.6-8.9); Platelet Count 298 K/mcL (140-400); Red Cell Distribution Width 21.9 % (11.5-14.5); Segmented Neutrophils % 55.5 %
[2016-10-17] MEDS: 0.9 % Sodium Chloride 1,000 ML IVC SCH (07:33)
[2016-10-17] MEDS: Psyllium 1 PACKET POWD.PACK PO SCH ×3 (07:48→20:38)
[2016-10-17] MEDS: Pantoprazole 40 MG VIAL IVP SCH (07:48)
--- NOTE | 2016-10-17 10:04 | General Surgery Progress Note ---
Date of Encounter: 10/17/16 Time of Encounter: 09:45 - Assessment and Plan (1) Blood loss anemia Current Visit: Yes Status: Acute s/p EGD- small hiatal hernia, irregular Z-line. Biopsies taken. May call the surgical office in 1-2 weeks for pathology s/p colonoscopy- diverticulosis of the sigmoid and descending colon High fiber diet life-long Metamucil supplements daily Surgery will sign off. Thank you for allowing us to participate in the care of this patient. Please call with any further questions/concerns. (2) Diverticulosis of colon Current Visit: Yes Status: Acute Continue high fiber diet life-long Metamucil supplements daily Qualifiers: Diverticulosis bleeding: diverticulosis with bleeding Qualified Code(s): K57.31 - Diverticulosis of large intestine without perforation or abscess with bleeding Subjective Patient reports: feels better, tolerating a regular diet, voiding w/o difficulty , flatus, afebrile Objective Vital Signs - Last 8 Hours Temp Pulse Resp BP Pulse Ox 10/17/16 08:28 98.8 F 81 16 147/86 96 10/17/16 07:58 94 L 10/17/16 03:39 98.1 F 67 15 104/54 94 L Intake and Output 10/16/16 10/17/16 10/17/16 23:59 07:59 15:59 Intake Total 1000.0 / 1000.0 818 / 818 480 / 480 Output Total 1300 / 1300 700 / 700 200 / 200 Balance -300.0 / -300.0 118 / 118 280 / 280 Intake: IV Fluids 1000.0 / 1000.0 268 / 268 0.9 % Sodium Chloride 1, 1000.0 / 1000.0 268 / 268 000 ML @ 50 mls/hr IVC . Q20H [facility] Rx#:[id number] Oral 0 / 0 550 / 550 480 / 480 Output: Urine 1300 / 1300 700 / 700 200 / 200 Other: Meal Dinner Breakfast Percent of Meal Consumed 0% 100% Weight 76.1 kg Blood Glucose* 81 Patient Weight 10/17/16 23:59 Weight 76.1 kg - General physical appearance well developed, well nourished, no distress - Eyes normal ocular movement - ENT normal mucosa, atraumatic, normocephalic - Neck Neck exam: trachea midline - Respiratory normal expansion, normal respiratory effort, clear to auscultation - Cardiovascular Cardiovascular exam: Present: RRR - Abdomen Abdomen: Present: bowel sounds present, soft, non tender - Neurologic CN 2-12 grossly intact - Musculoskeletal normal gait, normal posture - Psychiatric oriented to time, oriented to person, oriented to place, speech is normal, memory intact - Labs 10/17/16 04:27 10/16/16 03:53 - VTE Documentation of Mechanical Device: Graduated compression elastic hosiery Consult Discharge Plan - Plan Additional Instructions: High fiber diet life-long Metamucil supplements daily Referrals: Chaz Mccabe MD [Primary Care Provider] - Daphnie Luque MD [Partnered Physician] - (call for biopsy results in 1-2 weeks; no need for follow-up)
[2016-10-17] MEDS ORDERED: 0.9 % Sodium Chloride 1,000 ML IVC SCH (11:45)
[2016-10-17 12:26] LABS: Hematocrit 27.7 % (35.3-44.9); Hemoglobin 8.7 g/dL (11.5-15.4)
--- NOTE | 2016-10-17 17:09 | Internal Med Progress Note ---
<Sami Trejo - Last Filed: 10/17/16 16:52> Date of Encounter: 10/17/16 Time of Encounter: 08:40 - Assessment and plan (1) Blood loss anemia Current Visit: Yes Status: Acute Assessment and plan: S/p two units of PRBCs, endoscopy consulted, EGD- small hiatal hernia, irregular Z-line. Biopsies taken. Colonoscopy- diverticulosis of the sigmoid and descending colon, surgery recommended High fiber diet life-long and Metamucil supplements daily, hgb today was stable but pt is somewhat symptomatic with lightheadedness and fatigue, orthostatic VS was normal, IV fluid was given, recheck labs in AM, likely d/c tmw. (2) Melena Current Visit: Yes Status: Acute Assessment and plan: Hx of chronic NSAID use, hgb drop is consistent with several episodes of melena , s/p two units of PRBCs, hgb stable, upper/lower endoscopy reviewed. (3) DVT prophylaxis Current Visit: Yes Status: Acute Assessment and plan: IPCs. - Subjective Interval history: Pt seen and examined this AM, pt was little bit sleepy but also complaints of lightheadedness, not feeling well today, also tired. - Constitutional Vitals: Temp Pulse Resp BP Pulse Ox 97.9 F 78 16 132/76 97 10/17/16 15:24 10/17/16 15:24 10/17/16 15:24 10/17/16 15:24 10/17/16 15:24 General appearance: Present: cooperative, A&O X 3, no acute distress, answers questions appropriately - Head Head exam: Present: atraumatic, normocephalic - Eye Eye exam: Present: PERRL, conjuntiva pink, sclera anicteric Pupils: Present: PERRL - Neck Neck exam general surgery: Present: supple, trachea midline. Absent: lymphadenopathy - Respiratory Respiratory exam: Present: CTAB. Absent: accessory muscle use, rales, rhonchi, wheezes - Cardiovascular Cardiovascular exam: Present: RRR, +S1, +S2. Absent: diastolic murmur, gallop, rubs, systolic murmur - GI/Abdominal GI/Abdominal exam: Present: normal bowel sounds, soft, no peritoneal signs. Absent: distended, tenderness - Extremities Exam Extremities exam: Present: warm, radial pulses palpable and symetrical. Absent : calf tenderness, cyanotic, pedal edema - Neurological Exam Neurological exam: Present: CN II-XII intact, oriented X3, no focal deficits. Absent: pronater drift, facial droop, speech deficit - Skin Skin exam: Present: dry, intact Internal Medicine: Result - Labs CBC & Chem 7: 10/17/16 12:15 10/16/16 03:53 Labs: Short CBC 10/17/16 10/17/16 Range/Units 04:27 12:15 WBC 5.8 (4.3-11.1) K/mcL Hgb 7.9 L 8.7 L (11.5-15.4) g/dL Hct 25.7 L 27.7 L (35.3-44.9) % Plt Count 298 (140-400) K/mcL Neutrophils # 3.2 (1.6-8.9) K/mcL - ABG Interpretation ABG results: PT/INR, D-dimer PT 10.6 Seconds (9.4-12.1) 10/14/16 12:08 - VTE Documentation of Mechanical Device: Graduated compression elastic hosiery Consult Discharge Plan - Plan Additional Instructions: High fiber diet life-long Metamucil supplements daily Referrals: Daphnie Luque MD [Partnered Physician] - (call for biopsy results in 1-2 weeks; no need for follow-up) Chaz Mccabe MD [Primary Care Provider] - <Kimo Salter - Last Filed: 10/17/16 17:19> - Assessment and plan (1) Anemia Current Visit: Yes Status: Acute Qualifiers: Anemia type: iron deficiency Iron deficiency anemia type: chronic blood loss Qualified Code(s): D50.0 - Iron deficiency anemia secondary to blood loss (chronic) (2) DVT prophylaxis Current Visit: Yes Status: Acute (3) Lower GI bleed Current Visit: Yes Status: Acute (4) Melena Current Visit: Yes Status: Acute - Constitutional Vitals: Temp Pulse Resp BP Pulse Ox 97.9 F 78 16 132/76 97 10/17/16 15:24 10/17/16 15:24 10/17/16 15:24 10/17/16 15:24 10/17/16 15:24 Internal Medicine: Result - Labs CBC & Chem 7: 10/17/16 12:15 10/16/16 03:53 Labs: Short CBC 10/17/16 10/17/16 Range/Units 04:27 12:15 WBC 5.8 (4.3-11.1) K/mcL Hgb 7.9 L 8.7 L (11.5-15.4) g/dL Hct 25.7 L 27.7 L (35.3-44.9) % Plt Count 298 (140-400) K/mcL Neutrophils # 3.2 (1.6-8.9) K/mcL - ABG Interpretation ABG results: PT/INR, D-dimer PT 10.6 Seconds (9.4-12.1) 10/14/16 12:08 - Attending Attestation Mrs. Gonzalez has been examined in rounds. I agree with the physical examination findings, assessment and plan as documented by the resident Dr. Sami Trejo. Patient was dizzy today. She underwent endoscopic studies yesterday and no evidence of active bleeding was noted. Hemoglobin today dropped, however we repeated the hemoglobin level today at noon and it was essentially unchanged compared to yesterday. We will continue monitoring the patient since she is being very dizzy. We will evaluate orthostatic vital signs. We will continue monitoring her hemoglobin tomorrow in a.m. We will stop IV fluids for now.
[2016-10-18] MEDS ORDERED: Acetaminophen 325 MG TABLET PO PRN (00:32)
[2016-10-18 05:29] LABS: Basophils % 0.3 %; Eosinophils # 0.1 K/mcL (0.0-0.6); Eosinophils % 1.8 %; Hematocrit 26.6 % (35.3-44.9); Hemoglobin 8.5 g/dL (11.5-15.4); Immature Granulocytes % 0.3 % (0-4); Lymphocytes # 1.9 K/mcL (0.6-4.6); Lymphocytes % 30.8 %; Mean Corpuscular Hemoglobin 28.3 pg (28.0-33.3); Mean Corpuscular Volume 88.7 fL (83.0-100.0); Mean Platelet Volume 9.5 fL (9.4-12.4); Monocytes # 0.5 K/mcL (0.0-1.3); Monocytes % 8.3 %; Neutrophils # 3.7 K/mcL (1.6-8.9); Platelet Count 349 K/mcL (140-400); Red Cell Distribution Width 21.1 % (11.5-14.5); Segmented Neutrophils % 58.5 %
[2016-10-18 05:52] LABS: BUN/Creatinine Ratio 10 (6-26); Blood Urea Nitrogen 7 mg/dL (7-20); Calcium 9.6 mg/dL (8.6-10.8); Carbon Dioxide 23 mEq/L (19-29); Chloride 110 mEq/L (98-109); Glucose 110 mg/dL (70-99); Osmolality,Calculated 291 (280-300); Potassium 3.8 mEq/L (3.5-4.5); Sodium 141 mEq/L (136-145); eGFR For African Americans > 60 (> 60); eGFR For Non-African Americans > 60 (> 60)
[2016-10-18] MEDS: Psyllium 1 PACKET POWD.PACK PO SCH (07:59)
[2016-10-18] MEDS: Pantoprazole 40 MG VIAL IVP SCH (07:59)
[2016-10-18 10:38] VITALS: BP 137/79
--- NOTE | 2016-10-18 11:10 | Discharge Summary ---
<Sami Trejo - Last Filed: 10/18/16 14:31> Date of Encounter: 10/18/16 Time of Encounter: 11:08 - Discharge Diagnosis (1) Blood loss anemia Priority: Primary Status: Acute (2) Melena Priority: Secondary Status: Acute (3) HTN (hypertension) Priority: Secondary Status: Acute Qualifiers: Qualified Code(s): I10 - Essential (primary) hypertension (4) DVT prophylaxis Priority: Secondary Status: Acute - Discharge Medications Prescriptions: Psyllium [Metamucil Fiber Singles Packet] 1 packet PO TID #15 powd.pack Home Medications: Cholecalciferol (D-3) [Vitamin D] 1,000 unit PO DAILY 10/14/16 [History] Enalapril Maleate [Vasotec] 10 mg PO BID 10/14/16 [History] Ferrous Sulfate [Iron] 325 mg PO BID 10/14/16 [History] Furosemide [Lasix] 40 mg PO DAILY 10/14/16 [History] Ranitidine HCl [Zantac] 150 mg PO BID 10/14/16 [History] Psyllium [Metamucil Fiber Singles Packet] 1 packet PO TID #15 powd.pack [Rx] Allergies/Adverse Reactions: Allergies No Known Allergies Allergy (Verified 10/14/16 12:03) Date of admission: 10/14/16 17:25 Primary care physician: Chaz Mccabe MD Consults: Surgery for endoscopy Discharging clinician: Sami Trejo Anticipated date of discharge: 10/18/16 - Patient Status Disposition: Home, Self-Care Condition: Good Functional capacity at discharge: uses cane/walker (fall precaution) Overall status at discharge: patient is progressing back to baseline - Discharge Instructions Follow Up With: Daphnie Luque MD [Partnered Physician] - (call for biopsy results in 1-2 weeks; no need for follow-up) Chaz Mccabe MD [Primary Care Provider] - 10/20/16 10:00 am (F/u in a week for hospital d/c f/u.) Additional Instructions: High fiber diet life-long Metamucil supplements daily - Diet and Activity Activity: resume usual activities as tolerated Diet: other (high fiber diet life-long) Hospital course: Ms. Gonzalez is a 70 year old female with hx of HTN who came to the ER with cc of melena, hgb was less than 7 when she presented, hx of chronic NSAID use for multiple joint pains, fecal occult test was positive, never had endoscopy in the past, surgery was consulted for EGD and colonoscopy, and EGD showed small hiatal hernia, irregular Z-line, biopsies was taken, colonoscopy showed diverticulosis of the sigmoid and descending colon, surgery recommended high fiber diet life-long and metamucil supplements daily, after two units of prbc her hgb stabilized and her symptoms improved, therefore she will be d/c today in stable condition. - Time Spent with Patient Total time spent providing and/or coordinating discharge services: - Constitutional Vitals: Temp Pulse Resp BP Pulse Ox 98.2 F 89 18 137/79 94 L 10/18/16 10:37 10/18/16 10:37 10/18/16 10:37 10/18/16 10:37 10/18/16 10:37 General appearance: Present: cooperative, A&O X 3, no acute distress, answers questions appropriately - Head Head exam: Present: atraumatic, normocephalic - Eye Eye exam: Present: PERRL, conjuntiva pink, sclera anicteric Pupils: Present: PERRL - Neck Neck exam general surgery: Present: supple, trachea midline. Absent: lymphadenopathy - Respiratory Respiratory exam: Present: CTAB. Absent: accessory muscle use, rales, rhonchi, wheezes - Cardiovascular Cardiovascular exam: Present: RRR, +S1, +S2. Absent: diastolic murmur, gallop, rubs, systolic murmur - GI/Abdominal GI/Abdominal exam: Present: normal bowel sounds, soft, no peritoneal signs. Absent: distended, tenderness - Extremities Exam Extremities exam: Present: warm, radial pulses palpable and symetrical. Absent : calf tenderness, cyanotic, pedal edema - Neurological Exam Neurological exam: Present: CN II-XII intact, oriented X3, no focal deficits. Absent: pronater drift, facial droop, speech deficit - Skin Skin exam: Present: dry, intact - VTE Documentation of Mechanical Device: Graduated compression elastic hosiery <Kimo Salter - Last Filed: 10/18/16 17:22> - Discharge Diagnosis (1) Anemia Status: Acute Qualifiers: Anemia type: iron deficiency Iron deficiency anemia type: chronic blood loss Qualified Code(s): D50.0 - Iron deficiency anemia secondary to blood loss (chronic) (2) DVT prophylaxis Status: Acute (3) Lower GI bleed Status: Acute (4) Melena Status: Acute Date of admission: 10/14/16 17:25 Primary care physician: Chaz Mccabe MD Hospital course: Ms. Gonzalez is a 70 year old female - Time Spent with Patient Total time spent providing and/or coordinating discharge services: - Constitutional Vitals: Temp Pulse Resp BP Pulse Ox 98.2 F 89 18 137/79 94 L 10/18/16 10:37 10/18/16 10:37 10/18/16 10:37 10/18/16 10:37 10/18/16 10:37 - Attending Attestation Mrs. Gonzalez has been examined in rounds. I agree with the physical examination findings, assessment and plan as documented by the resident Dr. Sami Trejo. Patient is stable for discharge, follow biopsy results as outpatient. Hb stable.
== END 2016-10-18 11:48 | disposition home or self-care (01) | DRG 379 ==
LOC: 3ANU 11:20 → EMEROO 11:20 → 3ANU 19:50
PROVIDERS: ADMIT Internal Medicine; ATTEND Internal Medicine
PROC: ENDOEBX (2016-10-16 15:30)
PROC: ENDOCBX (2016-10-16 15:30)

== ENCOUNTER 2018-05-15 13:01 | Observation (INO) ==
[2018-05-15] MEDS ORDERED: Ondansetron 4 MG/2 ML VIAL IVP ONE (13:15)
--- NOTE | 2018-05-15 13:19 | Emergency Department Note ---
Disposition Clinical Impression: Dyspnea Ascites Qualifiers: Ascites type: malignant Qualified Code(s): R18.0 - Disposition: Still a Patient Condition: Fair Time of Disposition: 17:57 General Adult HPI - General Chief complaint: ED Abdominal Pain Stated complaint: cancer patient, needs cath to drain stomach Time Seen by Provider: 05/15/18 13:04 Source: family Limitations: no limitations Nursing Notes Reviewed: Yes Vital Signs Reviewed: Yes - History of Present Illness HPI Narrative: 72yo female presents from [facility] for admission for placement of indwelling peritoneal catheter. PAtient has pancreatic cancer with mets to liver, stomach, and BL lungs. She had a ascites drained 6 days ago with progressive dyspnea and abdominal bloating since. Worse when laying supine. She has decrease in PO intake; no appetite and poor tolerance of fluids. Her nausea is improved with zofran. No Hx COPD, CAD, or ACS. ROS: Pos: as above Neg: fever, chills, chest pain, palpitations. Pain Scale: 8 - Related Data Home Medications Medication Instructions Recorded Confirmed Ascorbate Calcium [Vitamin C] 500 mg PO QPM 05/05/18 05/15/18 Calcium Carbonate/Vitamin D3 1 tab PO QPM 05/05/18 05/15/18 [Calcium 500 + Vit D Caplet] Cetirizine HCl [Zyrtec] 10 mg PO DAILY 05/05/18 05/15/18 Enalapril Maleate [Vasotec] 10 mg PO BID 05/05/18 05/15/18 Ferrous Sulfate [Iron] 325 mg PO QPM 05/05/18 05/15/18 Insulin Glargine,Hum.rec.anlog 50 units SQ HS 05/05/18 05/15/18 [Lantus Solostar] Insulin LISPRO [HumaLOG] 8 units SQ TIDWM MDD plus sliding 05/05/18 05/15/18 scale PARoxetine HCl [Paroxetine HCl] 10 mg PO DAILY 05/05/18 05/15/18 Ranitidine HCl [Acid Roll Contour Grinder] 150 mg PO DAILY 05/05/18 05/15/18 Dronabinol [Marinol] 5 mg PO DAILY 05/15/18 05/15/18 Furosemide [Lasix] 40 mg PO BID PRN 05/15/18 05/15/18 Ibuprofen [Ibu] 600 mg PO Q6H PRN 05/15/18 05/15/18 Spironolactone [Aldactone] 50 mg PO BID 05/15/18 05/15/18 Previous Rx's Medication Instructions Recorded Metoclopramide [Reglan] 5 mg PO QIDAC PRN 7 Days #30 vial 05/10/18 Ondansetron [Zofran] 4 mg PO Q6HR PRN 7 Days #30 vial 05/10/18 OxyCODONE Immed Rel [Roxicodone 5 5 mg PO Q6H PRN 7 Days #30 tablet 05/10/18 MG] Sennosides/Docusate Sodium [Senna 1 each PO BID 10 Days #20 tablet 05/10/18 Plus] Allergies Allergy/AdvReac Type Severity Reaction Status Date / Time No Known Allergies Allergy Verified 05/05/18 13:41 Past Medical History - Past Medical History Medical history: Reports: arthritis, diabetes, fibromyalgia, GERD, hypertension , other Surgical history: Reports: other Psychiatric history: Reports: depression - Social History Smoking Status: Never smoker Smokeless Tobacco Status: No Alcohol use: Reports: rarely Drug use: Reports: none Physical Exam - General Limitations: no limitations General appearance: alert Course Course Narrative: Followed by Dr. 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 She had paracentesis recently secondary to her ascites. Suspect her symptoms are secondary to worsening ascites. Discussed madhu patient with the admitting hospitalist who agrees to accept the patient for IR consultation as well as continued evaluation of her decreased appetite and weakness. Chest X-Ray 05/15/18 13:14 IMPRESSION: Hypoaeration with right lower lobe atelectasis or infiltrate. Scoliosis. D/ / 05/15/2018 13:52:10 Humphrey Tello MD / [email or web address] Interpreting Provider: Humphrey Tello MD Abdomen/Pelvis CT 05/15/18 13:22 IMPRESSION: 1. No significant interval change since 05/05/2018 of multiple liver metastases and peritoneal carcinomatosis associated with large volume abdominal ascites. 2. Interval increase in size of a large right pleural effusion. 3. Moderate hiatal hernia. D/ / 05/15/2018 14:47:13 Nadia Ocasio MD / [email or web address] Interpreting Provider: Nadia Ocasio MD Vital Signs Temperature 97.7 F 05/15/18 13:02 Pulse Rate 101 05/15/18 13:02 Respiratory Rate 16 05/15/18 13:02 Blood Pressure 126/67 05/15/18 13:02 O2 Sat by Pulse Oximetry 91 05/15/18 13:02 Temperature 98.9 F 05/15/18 15:57 Pulse Rate 107 05/15/18 15:57 Respiratory Rate 16 05/15/18 15:57 Blood Pressure 117/73 05/15/18 15:57 O2 Sat by Pulse Oximetry 93 05/15/18 15:57 Oxygen Delivery Oxygen Delivery Room Air Medical Decision Making - Lab Data Result diagrams: 05/15/18 13:20 05/15/18 13:20 Lab Results 05/15/18 05/15/18 05/15/18 Range/Units 13:20 13:20 13:20 WBC 12.1 H D (4.3-11.1) K/mcL RBC 4.36 (3.82-4.97) M/mcL Hgb 13.3 (11.5-15.4) g/dL Hct 39.7 (35.3-44.9) % MCV 91.1 (83.0-100.0) fL MCH 30.5 (28.0-33.3) pg MCHC 33.5 (31.6-35.5) g/dL RDW 12.0 (11.5-14.5) % Plt Count 443 H (140-400) K/mcL MPV 10.0 (9.4-12.4) fL Immature Gran % 0.5 (0-4) % Seg Neutrophils % 77.8 % Lymphocytes % 10.7 % Monocytes % 10.7 % Eosinophils % 0.1 % Basophils % 0.2 % Neutrophils # 9.4 H (1.6-8.9) K/mcL Lymphocytes # 1.3 (0.6-4.6) K/mcL Monocytes # 1.3 (0.0-1.3) K/mcL Eosinophils # 0.0 (0.0-0.6) K/mcL Basophils # 0.0 (0.0-0.2) K/mcL PT (9.4-12.1) Seconds INR APTT (26.0-36.0) Seconds Sodium 129 L (136-145) mEq/L Potassium 4.1 (3.5-5.1) mEq/L Chloride 90 L (98-107) mEq/L Carbon Dioxide 21 L (23-29) mEq/L BUN 16 (8-23) mg/dL Creatinine 0.77 (0.60-1.20) mg/dL Est GFR ( Amer) > 60 (> 60) Est GFR (Non-Af Amer) > 60 (> 60) BUN/Creatinine Ratio 21 (6-26) Glucose 407 H (70-105) mg/dL POC Glucose (70-99) mg/dL Calculated Osmolality 286 (280-300) Lactic Acid (0.5-2.2) mmol/L Calcium 10.2 (8.6-10.3) mg/dL Total Bilirubin 0.5 (0.3-1.0) mg/dL Direct Bilirubin 0.1 (0.0-0.2) mg/dL Indirect Bilirubin 0.4 (0.0-1.2) mg/dL AST 6 L (13-39) Units/L ALT 5 L (7-52) Units/L Alkaline Phosphatase 152 H (34-104) Units/L Troponin I < 0.03 (< 0.04) ng/mL B-Natriuretic Peptide 55 (Less than 100) pg/mL Serum Total Protein 6.1 L (6.4-8.9) g/dL Albumin 3.1 L (3.5-5.7) g/dL Globulin 3.0 (2.4-3.5) g/dL Albumin/Globulin Ratio 1.0 L (1.1-2.2) Lipase < 3 L (11-82) Units/L 05/15/18 05/15/18 05/15/18 Range/Units 13:20 14:07 14:55 WBC (4.3-11.1) K/mcL RBC (3.82-4.97) M/mcL Hgb (11.5-15.4) g/dL Hct (35.3-44.9) % MCV (83.0-100.0) fL MCH (28.0-33.3) pg MCHC (31.6-35.5) g/dL RDW (11.5-14.5) % Plt Count (140-400) K/mcL MPV (9.4-12.4) fL Immature Gran % (0-4) % Seg Neutrophils % % Lymphocytes % % Monocytes % % Eosinophils % % Basophils % % Neutrophils # (1.6-8.9) K/mcL Lymphocytes # (0.6-4.6) K/mcL Monocytes # (0.0-1.3) K/mcL Eosinophils # (0.0-0.6) K/mcL Basophils # (0.0-0.2) K/mcL PT 13.2 H (9.4-12.1) Seconds INR 1.2 APTT 28.6 (26.0-36.0) Seconds Sodium (136-145) mEq/L Potassium (3.5-5.1) mEq/L Chloride (98-107) mEq/L Carbon Dioxide (23-29) mEq/L BUN (8-23) mg/dL Creatinine (0.60-1.20) mg/dL Est GFR ( Amer) (> 60) Est GFR (Non-Af Amer) (> 60) BUN/Creatinine Ratio (6-26) Glucose (70-105) mg/dL POC Glucose 356 H (70-99) mg/dL Calculated Osmolality (280-300) Lactic Acid 1.0 (0.5-2.2) mmol/L Calcium (8.6-10.3) mg/dL Total Bilirubin (0.3-1.0) mg/dL Direct Bilirubin (0.0-0.2) mg/dL Indirect Bilirubin (0.0-1.2) mg/dL AST (13-39) Units/L ALT (7-52) Units/L Alkaline Phosphatase (34-104) Units/L Troponin I (< 0.04) ng/mL B-Natriuretic Peptide (Less than 100) pg/mL Serum Total Protein (6.4-8.9) g/dL Albumin (3.5-5.7) g/dL Globulin (2.4-3.5) g/dL Albumin/Globulin Ratio (1.1-2.2) Lipase (11-82) Units/L Attestation Statement - Attestation Attestation: I examined this patient and my medical decision-making was reviewed with the Resident Physician. I agree with the documented findings, disposition and treatment plan as described except to the extent set forth below. Findings consistent with nausea and vomiting related to metastatic cancer. Patient was sent if for paracentesis. Will admit for further management and paracentesis by interventional radiology.
[2018-05-15 13:55] LABS: Basophils % 0.2 %; Eosinophils % 0.1 %; Hematocrit 39.7 % (35.3-44.9); Hemoglobin 13.3 g/dL (11.5-15.4); Immature Granulocytes % 0.5 % (0-4); Lymphocytes # 1.3 K/mcL (0.6-4.6); Lymphocytes % 10.7 %; Mean Corpuscular HGB Conc 33.5 g/dL (31.6-35.5); Mean Corpuscular Hemoglobin 30.5 pg (28.0-33.3); Mean Corpuscular Volume 91.1 fL (83.0-100.0); Monocytes # 1.3 K/mcL (0.0-1.3); Monocytes % 10.7 %; Neutrophils # 9.4 K/mcL (1.6-8.9); Platelet Count 443 K/mcL (140-400); Red Blood Count 4.36 M/mcL (3.82-4.97); Segmented Neutrophils % 77.8 %
[2018-05-15 14:04] LABS: INR 1.2; Prothrombin Time 13.2 Seconds (9.4-12.1)
[2018-05-15 14:07] LABS: Activated Partial Thrombo Time 28.6 Seconds (26.0-36.0)
[2018-05-15 14:12] LABS: Troponin I < 0.03 ng/mL (< 0.04)
[2018-05-15] MEDS ORDERED: *HR* Promethazine 25 MG/ML VIAL IVP ONE (14:58)
[2018-05-15 15:11] LABS: Alanine Aminotransferase 5 Units/L (7-52); Albumin 3.1 g/dL (3.5-5.7); Alkaline Phosphatase 152 Units/L (34-104); Aspartate Amino Transferase 6 Units/L (13-39); BUN/Creatinine Ratio 21 (6-26); Bilirubin,Direct 0.1 mg/dL (0.0-0.2); Bilirubin,Indirect 0.4 mg/dL (0.0-1.2); Bilirubin,Total 0.5 mg/dL (0.3-1.0); Blood Urea Nitrogen 16 mg/dL (8-23); Calcium 10.2 mg/dL (8.6-10.3); Carbon Dioxide 21 mEq/L (23-29); Chloride 90 mEq/L (98-107); Glucose 407 mg/dL (70-105); Lipase < 3 Units/L (11-82); Osmolality,Calculated 286 (280-300); Potassium 4.1 mEq/L (3.5-5.1); Sodium 129 mEq/L (136-145); Total Protein 6.1 g/dL (6.4-8.9); eGFR For Non-African Americans > 60 (> 60)
[2018-05-15] MEDS ORDERED: Acetaminophen 325 MG TABLET PO PRN (15:24)
[2018-05-15] MEDS ORDERED: *HR* HYDROcodone/Acet 5/325 mg TABLET PO PRN (15:24)
[2018-05-15] MEDS ORDERED: Naloxone 0.4 MG/ML INJ IVP PRN (15:24)
[2018-05-15] MEDS ORDERED: Ondansetron 4 MG/2 ML VIAL IVP PRN (15:26)
[2018-05-15] MEDS ORDERED: D5% in Water 1,000 ML IVC PRN (15:27)
[2018-05-15] MEDS ORDERED: Dextrose Gel 15 GM/37.5 ML TUBE PO PRN ×2 (15:27)
[2018-05-15] MEDS ORDERED: *HR* Dextrose 50 % in Water (Syg) 50 ML SYRINGE IVP PRN (15:27)
--- NOTE | 2018-05-15 15:43 | Internal Med History&Physical ---
Date of Encounter: 05/15/18 Time of Encounter: 15:43 Internal Medicine - H&P: HPI Chief complaint: Abdominal pain Admitted From: Emergency Dept Plans for Post Hospital Care: Hospice - Home History of present illness: Ms. Gonzalez is a 72 year old female with history of metastatic pancreatic cancer with liver metastases, who was sent in from oncology office for evaluation of recurrent ascites and placement of possible indwelling peritoneal catheter. Patient was just discharged from our hospital about 5 days ago after receiving paracentesis and liver biopsy, that confirmed metastatic pancreatic cancer, and she presented for her initial visit with oncology today. She reports worsening upper abdominal pain, mostly in right and left upper quadrant, associated with significant nausea and dry heaving. She also has anorexia, recent weight loss and generalized weakness, unable to get out of bed or ambulate independently. She has significant constipation secondary to pain medications. She does have home health services, her 80s at bedside, awaiting hospice care at home. Past Med Surg Social Fam HX - Past Medical History Source: patient, old records reviewed Medical history: arthritis, cancer, diabetes, fibromyalgia, GERD, hypertension, other Additional medical history: diabetes type 1, chronic fatigue, andrew nuñez, diverticulosis Psychiatric history: depression - Past Surgical History Surgical History: other Additional surgical history: bilateral eye surgery, T&A, colonoscopy - Social History Smoking Status: Never smoker Smokeless Tobacco Status: No Alcohol use: rarely Drug use: none Current living situation: Home - Independent Activity Level: Uses cane/walker, Wheelchair bound Recent Out of Country Travel Within the Last 8 Weeks: No Exposure or Possible Exposure to Illness During Travel: No - Additional Family History Additional family history: Patient is adopted, does not know her family history. Internal Medicine - H&P: Meds Ascorbate Calcium [Vitamin C] 500 mg PO QPM 05/05/18 [History] Calcium Carbonate/Vitamin D3 [Calcium 500 + Vit D Caplet] 1 tab PO QPM 05/05/18 [History] Cetirizine HCl [Zyrtec] 10 mg PO DAILY 05/05/18 [History] Enalapril Maleate [Vasotec] 10 mg PO BID 05/05/18 [History] Ferrous Sulfate [Iron] 325 mg PO QPM 05/05/18 [History] Insulin Glargine,Hum.rec.anlog [Lantus Solostar] 50 units SQ HS 05/05/18 [ History] Insulin LISPRO [HumaLOG] 8 units SQ TIDWM MDD plus sliding scale 05/05/18 [ History] PARoxetine HCl [Paroxetine HCl] 10 mg PO DAILY 05/05/18 [History] Ranitidine HCl [Acid Machining Engineer] 150 mg PO DAILY 05/05/18 [History] Metoclopramide [Reglan] 5 mg PO QIDAC PRN 7 Days #30 vial 05/10/18 [Rx] Ondansetron [Zofran] 4 mg PO Q6HR PRN 7 Days #30 vial 05/10/18 [Rx] OxyCODONE Immed Rel [Roxicodone 5 MG] 5 mg PO Q6H PRN 7 Days #30 tablet [Rx] Sennosides/Docusate Sodium [Senna Plus] 1 each PO BID 10 Days #20 tablet [Rx] Dronabinol [Marinol] 5 mg PO DAILY 05/15/18 [History] Furosemide [Lasix] 40 mg PO BID PRN 05/15/18 [History] Ibuprofen [Ibu] 600 mg PO Q6H PRN 05/15/18 [History] Spironolactone [Aldactone] 50 mg PO BID 05/15/18 [History] 3 Allergy/AdvReac Type Severity Reaction Status Date / Time No Known Allergies Allergy Verified 05/05/18 13:41 All Systems PM: A 10-system review of systems was performed and is negative for pertinent findings except as documented above in the HPI. - Constitutional Constitutional: fatigue, weakness, weight loss, no chills, no fever(s), no night sweats - EENT Eyes: no change in vision, no discharge, no pain, no photophobia Ears: no ear discharge, no ear pain, no tinnitus Nose, mouth and throat: no dysphagia, no nasal discharge, no neck pain, no sore throat - Cardiovascular Cardiovascular ROS IM: no chest pain, no diaphoresis, no dyspnea, no lightheadedness, no palpitations, no syncope - Respiratory Respiratory: no cough, no dyspnea, no wheezing, no excessive phlegm production - Gastrointestinal Gastrointestinal: abdominal pain, bloating, change in bowel habits, constipation , nausea - Genitourinary Genitourinary: no change in urinary stream, no dysuria, no flank pain, no hematuria - Musculoskeletal Musculoskeletal ROS IM: no numbness, no tingling - Integumentary Integumentary IM: no rash, no unusual bruising - Neurological Neurological ROS: no confusion, no convulsions, no focal weakness, no numbness, no tingling, no tremor(s) - Hematologic/Lymphatic Hematologic/Lymphatic: no easy bruising - Constitutional Vitals: Temp Pulse Resp BP Pulse Ox 98.2 F 97 16 116/79 93 05/15/18 13:14 05/15/18 14:53 05/15/18 14:53 05/15/18 14:53 05/15/18 14:53 General appearance: Present: mild distress (due to nausea), A&O X 3, answers questions appropriately Exam: . - Head Head exam: Present: atraumatic, normocephalic - Eye Eye exam: Present: PERRL, conjuntiva pink, sclera anicteric Pupils: Present: PERRL - Neck Neck exam general surgery: Present: supple, trachea midline. Absent: lymphadenopathy - Respiratory Respiratory exam: Present: CTAB. Absent: accessory muscle use, rales, rhonchi, wheezes - Cardiovascular Cardiovascular exam: Present: RRR, +S1, +S2. Absent: diastolic murmur, gallop, rubs, systolic murmur - GI/Abdominal GI/Abdominal exam: Present: distended, normal bowel sounds, soft (tenderness to light palpation diffusely, worse in upper abdomen), no peritoneal signs. Absent : tenderness - Extremities Exam Extremities exam: Present: pedal edema (trace dependent B/L), warm, radial pulses palpable and symmetrical. Absent: calf tenderness, cyanotic - Neurological Exam Neurological exam: Present: CN II-XII intact, oriented X3, no focal deficits. Absent: pronater drift, facial droop, speech deficit - Skin Skin exam: Present: dry, intact Internal Med - H&P Results - Labs CBC & Chem 7: 05/15/18 13:20 05/15/18 13:20 - Assessment and plan (1) Ascites Current Visit: Yes Status: Acute Assessment and plan: recurrent malignant ascites, due to pancreatic cancer metastasized to liver; CT abdomen/pelvis shows peritoneal carcinomatosis, large volume ascites, liver mets, right pleural effusion; s/p recent paracentesis; IR consulted for peritoneal PleurX catheter placed, possibly in am; pain control with PRN Oxycodone; supportive care with PRN antiemetics, fall precautions; supplemental O2 as needed; hold diuretics for now; patient was seen by Palliative care during recnet admission; her son is her POA ; Code status is [id number]-CCA/DNI, awaiting Home Hospice evaluation; Qualifiers: Ascites type: malignant Qualified Code(s): R18.0 - Malignant ascites (2) Depression Current Visit: Yes Status: Chronic Qualifiers: Depression Type: unspecified Qualified Code(s): F32.9 - Major depressive disorder, single episode, unspecified (3) Pancreatic cancer metastasized to liver Current Visit: Yes Status: Chronic Assessment and plan: recently diagnosed about 1 month ago; follows with Oncology as outpatient; supportive care; guarded prognosis; poor functional status; (4) Constipation Current Visit: Yes Status: Chronic Assessment and plan: due to narcotic pain meds; bowel regimen with Senna Plus and Miralax PRN; Qualifiers: Constipation type: drug induced constipation Qualified Code(s): K59.03 - Drug induced constipation (5) Diabetes Current Visit: Yes Status: Chronic Assessment and plan: Patient reports Type 1 DM recently diagnosed, about 2 months ago; likely related to pancreatic cancer; Blood sugars noted to be elevated; start basal bolus insulin regimen with close Accucheck blood glucose monitoring; diabetic diet as tolerated; Qualifiers: Diabetes mellitus type: other specified (including ROBERTO) Diabetes mellitus shelter insulin use: with adjunct faculty for medical terminology use Diabetes mellitus complication status: with hyperglycemia Qualified Code(s): E13.65 - Other specified diabetes mellitus with hyperglycemia; Z79.4 - intermediate designer (current) use of insulin (6) HTN (hypertension) Current Visit: Yes Status: Chronic Assessment and plan: monitor BP, now stable; hold diuretics and ACEI for now; Qualifiers: Hypertension type: essential hypertension Qualified Code(s): I10 - Essential (primary) hypertension (7) Failure to thrive Current Visit: Yes Status: Chronic Assessment and plan: due to underlying malignancy; continue Marinol and PRN antiemetics; diet as tolerated; Qualifiers: Failure to thrive age range: in adult Qualified Code(s): R62.7 - Adult failure to thrive - Time Spent With Patient Total time spent is greater than 50% in coordination of care (as documented) at patient's floor/unit and/or counseling patient:
[2018-05-15] MEDS: 0.9 % Sodium Chloride 1,000 ML IVC SCH (17:48)
[2018-05-15] MEDS: Insulin LISPRO 300 UNITS/3 ML VIAL SQ SCH (17:48)
[2018-05-15] MEDS ORDERED: Insulin LISPRO 300 UNITS/3 ML VIAL SQ SCH (21:00)
[2018-05-15] MEDS: *HR* OxyCODONE Immed Rel 5 MG TABLET PO PRN (22:40)
[2018-05-15] MEDS: *HR* Promethazine 25 MG/ML VIAL IVP PRN (22:46)
[2018-05-15] MEDS: Insulin DETEMIR 100 UNIT/ML X5UNITS SQ SCH (22:47)
[2018-05-15] MEDS: Sennosides/Docusate Sodium TABLET PO SCH (22:49)
[2018-05-15] MEDS: *HR* Heparin 5,000 UNIT/ML VIAL SQ SCH (22:49)
[2018-05-16 01:27] LABS: BUN/Creatinine Ratio 19 (6-26); Blood Urea Nitrogen 15 mg/dL (8-23); Calcium 10.3 mg/dL (8.6-10.3); Carbon Dioxide 15 mEq/L (23-29); Chloride 92 mEq/L (98-107); Glucose 442 mg/dL (70-105); Magnesium 1.5 mg/dL (1.6-2.6); Osmolality,Calculated 292 (280-300); Potassium 4.1 mEq/L (3.5-5.1); Sodium 131 mEq/L (136-145); eGFR For Non-African Americans > 60 (> 60)
[2018-05-16] MEDS: *HR* Heparin 5,000 UNIT/ML VIAL SQ SCH ×3 (05:34→21:23)
[2018-05-16] MEDS: *HR* OxyCODONE Immed Rel 5 MG TABLET PO PRN ×2 (05:57→12:01)
[2018-05-16] MEDS: Insulin LISPRO 300 UNITS/3 ML VIAL SQ SCH ×3 (08:19→17:07)
[2018-05-16] MEDS: Sennosides/Docusate Sodium TABLET PO SCH ×2 (08:22→21:23)
[2018-05-16] MEDS: Insulin DETEMIR 100 UNIT/ML X5UNITS SQ SCH ×2 (08:22→21:23)
--- NOTE | 2018-05-16 08:51 | IR Consult Note ---
Date of Encounter: 05/16/18 Time of Encounter: 08:25 Consult date: 05/16/18 Physicians: Sarah Culp MD Consult Comment: 72 year old patient with metastatic pancreatic cancer, stage 4. She has peritoneal carcinomatosis with moderate ascites and right effusion. Because of peritoneal carcinomatosis and relative modest ascites a Pleurx is not ideal for her. She has a moderate right effusion and needs a thoracentesis. A hospice consult may also be reasonable given her advanced stage of disease. Thank you for the consult. Call [facility] with questions or concerns. Past Med Surg Social Fam HX - Past Medical History Medical history: arthritis, diabetes, fibromyalgia, GERD, hypertension, other Additional medical history: diabetes type 1, chronic fatigue, andrew nuñez, diverticulosis Psychiatric history: depression - Past Surgical History Surgical History: other Additional surgical history: bilateral eye surgery, T&A, colonoscopy - Social History Smoking Status: Never smoker Smokeless Tobacco Status: No Alcohol use: rarely Drug use: none - Family History Mother Adopted: Yes Medications and Allergies Ascorbate Calcium [Vitamin C] 500 mg PO QPM 05/05/18 [History] Calcium Carbonate/Vitamin D3 [Calcium 500 + Vit D Caplet] 1 tab PO QPM 05/05/18 [History] Cetirizine HCl [Zyrtec] 10 mg PO DAILY 05/05/18 [History] Enalapril Maleate [Vasotec] 10 mg PO BID 05/05/18 [History] Ferrous Sulfate [Iron] 325 mg PO QPM 05/05/18 [History] Insulin Glargine,Hum.rec.anlog [Lantus Solostar] 50 units SQ HS 05/05/18 [ History] Insulin LISPRO [HumaLOG] 8 units SQ TIDWM MDD plus sliding scale 05/05/18 [ History] PARoxetine HCl [Paroxetine HCl] 10 mg PO DAILY 05/05/18 [History] Ranitidine HCl [Acid Bale Sewer] 150 mg PO DAILY 05/05/18 [History] Metoclopramide [Reglan] 5 mg PO QIDAC PRN 7 Days #30 vial 05/10/18 [Rx] Ondansetron [Zofran] 4 mg PO Q6HR PRN 7 Days #30 vial 05/10/18 [Rx] OxyCODONE Immed Rel [Roxicodone 5 MG] 5 mg PO Q6H PRN 7 Days #30 tablet [Rx] Sennosides/Docusate Sodium [Senna Plus] 1 each PO BID 10 Days #20 tablet [Rx] Dronabinol [Marinol] 5 mg PO DAILY 05/15/18 [History] Furosemide [Lasix] 40 mg PO BID PRN 05/15/18 [History] Ibuprofen [Ibu] 600 mg PO Q6H PRN 05/15/18 [History] Spironolactone [Aldactone] 50 mg PO BID 05/15/18 [History] 3 Allergy/AdvReac Type Severity Reaction Status Date / Time No Known Allergies Allergy Verified 05/05/18 13:41 Exam Vital Signs, Last 4 Hours Temp Pulse Resp BP Pulse Ox 05/16/18 07:34 98.2 F 98 18 137/80 91 Results Reviewed 05/15/18 13:20 05/16/18 00:43 Lab Results 05/16/18 00:43 Sodium 131 L Potassium 4.1 Chloride 92 L Carbon Dioxide 15 L BUN 15 Creatinine 0.80 Est GFR ( Amer) > 60 Est GFR (Non-Af Amer) > 60 BUN/Creatinine Ratio 19 Glucose 442 H Calcium 10.3 Magnesium 1.5 L Consult Discharge Plan - Plan Referrals: Chaz Mccabe MD [Primary Care Provider] -
--- NOTE | 2018-05-16 11:19 | Oncology Inp Consult Note ---
<Ryan Mcguire - Last Filed: 05/16/18 17:24> Date of Encounter: 05/16/18 Time of Encounter: 11:16 Assessment and Plan (1) Pancreatic cancer Status: Acute Assessment and plan: With evidence of metastasis. Patient was seen by her primary oncologist, Dr. Taveras, who felt she is not a candidate for repetitive chemotherapy given her severe symptoms. At the outpatient appointment yesterday she reported that she was willing to discuss hospice and agree with palliative care consultation. Qualifiers: Pancreatic malignancy location: tail of pancreas Qualified Code(s): C25.2 - Malignant neoplasm of tail of pancreas (2) Ascites Status: Acute Assessment and plan: Moderate ascites noted on physical exam. IR was consulted who felt that she is not a candidate for an indwelling peritoneal catheter. Family would like one to prevent fluid accumulation and pain. Qualifiers: Ascites type: malignant Qualified Code(s): R18.0 - Malignant ascites - Data of Consult Patient: known to practice within the last 3 years Consult date: 05/16/18 Requesting Physician: Sarah Culp MD Primary Care Provider: Chaz Mccabe MD - Consult Narrative Reason for consult: Pancreatic adenocarcinoma History of present illness: Ms. Gonzalez is a 72 year old female with history of pancreatic adenocarcinoma diagnosed 05/07/2018 who presents with recurrent ascites. At the time I examined the patient was extremely somnolent and somewhat confused. Most of the history is provided by family member present. They state that she has been having increasing abdominal pain and distention. She has had paracentesis recently and despite this fluid has reaccumulated. Family reports that patient has been told by her primary oncologist that she is not short of undergo chemotherapy at this time. Past Med Surg Social Fam HX - Past Medical History Medical history: arthritis, diabetes, fibromyalgia, GERD, hypertension, other Additional medical history: diabetes type 1, chronic fatigue, andrew nuñez, diverticulosis Psychiatric history: depression - Past Surgical History Surgical History: other Additional surgical history: bilateral eye surgery, T&A, colonoscopy - Social History Smoking Status: Never smoker Smokeless Tobacco Status: No Alcohol use: rarely Drug use: none - Family History Mother Adopted: Yes Medications and Allergies Ascorbate Calcium [Vitamin C] 500 mg PO QPM 05/05/18 [History] Calcium Carbonate/Vitamin D3 [Calcium 500 + Vit D Caplet] 1 tab PO QPM 05/05/18 [History] Cetirizine HCl [Zyrtec] 10 mg PO DAILY 05/05/18 [History] Enalapril Maleate [Vasotec] 10 mg PO BID 05/05/18 [History] Ferrous Sulfate [Iron] 325 mg PO QPM 05/05/18 [History] Insulin Glargine,Hum.rec.anlog [Lantus Solostar] 50 units SQ HS 05/05/18 [ History] Insulin LISPRO [HumaLOG] 8 units SQ TIDWM MDD plus sliding scale 05/05/18 [ History] PARoxetine HCl [Paroxetine HCl] 10 mg PO DAILY 05/05/18 [History] Ranitidine HCl [Acid Non Destructive Evaluation Technician] 150 mg PO DAILY 05/05/18 [History] Metoclopramide [Reglan] 5 mg PO QIDAC PRN 7 Days #30 vial 05/10/18 [Rx] Ondansetron [Zofran] 4 mg PO Q6HR PRN 7 Days #30 vial 05/10/18 [Rx] OxyCODONE Immed Rel [Roxicodone 5 MG] 5 mg PO Q6H PRN 7 Days #30 tablet [Rx] Sennosides/Docusate Sodium [Senna Plus] 1 each PO BID 10 Days #20 tablet [Rx] Dronabinol [Marinol] 5 mg PO DAILY 05/15/18 [History] Furosemide [Lasix] 40 mg PO BID PRN 05/15/18 [History] Ibuprofen [Ibu] 600 mg PO Q6H PRN 05/15/18 [History] Spironolactone [Aldactone] 50 mg PO BID 05/15/18 [History] 3 Allergy/AdvReac Type Severity Reaction Status Date / Time No Known Allergies Allergy Verified 05/05/18 13:41 ROS unobtainable: due to mental status Oncology - Exam - Constitutional Vitals: Temp Pulse Resp BP Pulse Ox 98.4 F 122 16 142/105 90 05/16/18 10:35 05/16/18 10:35 05/16/18 10:35 05/16/18 10:35 05/16/18 10:35 Exam: Lethargic, appears ill - Head Head exam: Present: atraumatic, normal inspection, normocephalic - Eye Eye exam: Present: EOMI, sclera anicteric - Respiratory Respiratory exam: Present: decreased breath sounds. Absent: rales, rhonchi - Cardiovascular Cardiovascular exam: Present: tachycardia. Absent: diastolic murmur, irregular rhythm, systolic murmur - GI/Abdominal GI/Abdominal exam: Present: distended, firm, hypoactive bowel sounds, tenderness (diffuse) - Extremities Exam Extremities exam: Absent: pedal edema - Neurological Exam Neurological exam: Present: altered, no focal deficits Oncology - Results Labs: 3 05/16/18 05/16/18 05/16/18 07:32 07:25 00:43 Sodium 131 L Potassium 4.1 Chloride 92 L Carbon Dioxide 15 L BUN 15 Creatinine 0.80 Est GFR ( Amer) > 60 Est GFR (Non-Af Amer) > 60 BUN/Creatinine Ratio 19 Glucose 442 H POC Glucose 414 H* 411 H* Calculated Osmolality 292 Calcium 10.3 Magnesium 1.5 L 3 05/15/18 05/15/18 05/15/18 21:32 18:45 16:33 Sodium Potassium Chloride Carbon Dioxide BUN Creatinine Est GFR ( Amer) Est GFR (Non-Af Amer) BUN/Creatinine Ratio Glucose POC Glucose 365 H 384 H 390 H Calculated Osmolality Calcium Magnesium Consult Discharge Plan - Plan Referrals: Chaz Mccabe MD [Primary Care Provider] - <Preet Reza S - Last Filed: 05/16/18 19:14> Date of Encounter: 05/16/18 - Data of Consult Requesting Physician: Sarah Culp MD Primary Care Provider: Chaz Mccabe MD - Consult Narrative History of present illness: Ms. Gonzalez is a 72 year old female Oncology - Exam - Constitutional Vitals: Temp Pulse Resp BP Pulse Ox 98.2 F 89 16 129/87 93 05/16/18 19:09 05/16/18 19:09 05/16/18 19:09 05/16/18 19:09 05/16/18 19:09 Oncology - Results Labs: 3 05/16/18 05/16/18 05/16/18 16:27 11:40 07:32 Sodium Potassium Chloride Carbon Dioxide BUN Creatinine Est GFR ( Amer) Est GFR (Non-Af Amer) BUN/Creatinine Ratio Glucose POC Glucose 368 H 391 H 414 H* Calculated Osmolality Calcium Magnesium 3 05/16/18 05/16/18 05/15/18 07:25 00:43 21:32 Sodium 131 L Potassium 4.1 Chloride 92 L Carbon Dioxide 15 L BUN 15 Creatinine 0.80 Est GFR ( Amer) > 60 Est GFR (Non-Af Amer) > 60 BUN/Creatinine Ratio 19 Glucose 442 H POC Glucose 411 H* 365 H Calculated Osmolality 292 Calcium 10.3 Magnesium 1.5 L 3 05/15/18 05/15/18 18:45 16:33 Sodium Potassium Chloride Carbon Dioxide BUN Creatinine Est GFR ( Amer) Est GFR (Non-Af Amer) BUN/Creatinine Ratio Glucose POC Glucose 384 H 390 H Calculated Osmolality Calcium Magnesium - Attending Attestation I have seen and examined Ms. Gonzalez and agree with the resident's assessment and exam. Ms. Gonzalez has been found to have metastatic pancreatic adenocarcinoma with extensive hepatic as well as peritoneal disease. At time of consultation, she is currently comfortable. Her pain is controlled and rated at 1 out of 10 on her current regimen. She is without nausea. She is somewhat sedated but conversant and able to speak with her care team as well as her caregivers who are at her bedside. Therapeutic paracentesis has been elected against. Palliative care has evaluated the patient. Hospice is being arranged. The patient understands the nature of her disease. I discussed expectations moving forward as well as symptom control. Her caregiver voices understanding. The goal would be for her to proceed with home hospice. If her condition declines, inpatient hospice would not be unreasonable. I did confirm that she is DNR comfort care. I have no other recommendations today. We will otherwise sign off. If you have concerns or questions, do not hesitate to call my cell phone at [phone] Inpatient Charges Provider: Dr. Tosha Reza Consult Charges: [id number]
[2018-05-16] MEDS: 0.9 % Sodium Chloride 1,000 ML IVC SCH (11:49)
--- NOTE | 2018-05-16 12:26 | Palliative - Consult Note ---
Date of Encounter: 05/16/18 Time of Encounter: 11:45 - Assessment and Plan (1) Abdominal pain Current Visit: No Status: Acute Assessment and plan: She has been utilizing Oxycodone for pain, but is beginning to have difficulty swallowing tablets. She has been requiring more frequent doses at home. Will begin Fentanyl patch at 25 mcg and change Oxycodone tabs to Roxanol liquid concentrate. Qualifiers: Abdominal location: unspecified location Qualified Code(s): R10.9 - Unspecified abdominal pain (2) Ascites Current Visit: Yes Status: Acute Qualifiers: Ascites type: malignant Qualified Code(s): R18.0 - Malignant ascites (3) Metastatic disease Current Visit: No Status: Acute (4) Goals of care, counseling/discussion Current Visit: No Status: Acute Assessment and plan: Long discussion with pt son/daughter n law and friend re: goals of care. She appears to be quickly declining and may not survive long. After discussion of risks/benefits of thoracentesis, son decided to forego having this done. She does not appear dyspneic, and pt states when asked she doesn't feel short of breath or air hungry. Thoracentesis order cancelled per their request. She was evaluated by IR this am for abd pleurx cath, and was not considered a good candidate. [facility] referral was initiated yesterday, and they will be meeting family here this afternoon. Anticipate they will set up DME's and pt could go home tomorrow with hospice care. Will follow closely (5) Nausea & vomiting Current Visit: No Status: Acute Assessment and plan: She did better with scheduled antiemetics on last visit. Will change from PRN to scheduled. Qualifiers: Qualified Code(s): R11.2 - Nausea with vomiting, unspecified Palliative-CN HPI - Data of Consult Consult date: 05/16/18 Requesting Physician: Sarah Culp MD Primary Care Provider: Chaz Mccabe MD - Consult Narrative History of present illness: Ms. Gonzalez is a 72 year old female known to the palliative care team from visit last week, who was recently diagnosed with metastatic pancreatic cancer. She was just discharged last week after having paracentesis, biopsy, and struggling with nausea, vomiting, and abd pain. Medications were adjusted, and she insisted on going home last Sunday. At that time, she wanted to f/u with oncology on biopsy results, and wanted to discuss treatment options, and declined hospice care. She has had a significant decline at home over the past week,, with decreased intake, weakness, lethargy and nausea. She was at [facility] yesterday for visit, and was sent her to hospital for evaluation and possible placement of pleurx cath. Palliative care was consulted to assist with possible hospice transition and symptom management. Upon my visit, pt is lethargic and has difficulty staying awake. She is taking ice chips, but does have belching afterward. She is pale, appears extremely weak, and has periods of apnea when asleep. c/o abd discomfort, but cannot elaborate or describe. Caregiver/friend is at bedside. CC: Sarah Culp MD Past Med Surg Social Fam HX - Past Medical History Medical history: arthritis, diabetes, fibromyalgia, GERD, hypertension, other Additional medical history: diabetes type 1, chronic fatigue, andrew nuñez, diverticulosis Psychiatric history: depression - Past Surgical History Surgical History: other Additional surgical history: bilateral eye surgery, T&A, colonoscopy - Social History Smoking Status: Never smoker Smokeless Tobacco Status: No Alcohol use: rarely Drug use: none - Family History Mother Adopted: Yes Medications and Allergies Ascorbate Calcium [Vitamin C] 500 mg PO QPM 05/05/18 [History] Calcium Carbonate/Vitamin D3 [Calcium 500 + Vit D Caplet] 1 tab PO QPM 05/05/18 [History] Cetirizine HCl [Zyrtec] 10 mg PO DAILY 05/05/18 [History] Enalapril Maleate [Vasotec] 10 mg PO BID 05/05/18 [History] Ferrous Sulfate [Iron] 325 mg PO QPM 05/05/18 [History] Insulin Glargine,Hum.rec.anlog [Lantus Solostar] 50 units SQ HS 05/05/18 [ History] Insulin LISPRO [HumaLOG] 8 units SQ TIDWM MDD plus sliding scale 05/05/18 [ History] PARoxetine HCl [Paroxetine HCl] 10 mg PO DAILY 05/05/18 [History] Ranitidine HCl [Acid Brusher Warp] 150 mg PO DAILY 05/05/18 [History] Metoclopramide [Reglan] 5 mg PO QIDAC PRN 7 Days #30 vial 05/10/18 [Rx] Ondansetron [Zofran] 4 mg PO Q6HR PRN 7 Days #30 vial 05/10/18 [Rx] OxyCODONE Immed Rel [Roxicodone 5 MG] 5 mg PO Q6H PRN 7 Days #30 tablet [Rx] Sennosides/Docusate Sodium [Senna Plus] 1 each PO BID 10 Days #20 tablet [Rx] Dronabinol [Marinol] 5 mg PO DAILY 05/15/18 [History] Furosemide [Lasix] 40 mg PO BID PRN 05/15/18 [History] Ibuprofen [Ibu] 600 mg PO Q6H PRN 05/15/18 [History] Spironolactone [Aldactone] 50 mg PO BID 05/15/18 [History] 3 Allergy/AdvReac Type Severity Reaction Status Date / Time No Known Allergies Allergy Verified 05/05/18 13:41 ROS unobtainable: due to mental status Palliative Care-Exam - Constitutional Vitals: Temp Pulse Resp BP Pulse Ox 98.4 F 122 16 142/105 90 05/16/18 10:35 05/16/18 10:35 05/16/18 10:35 05/16/18 10:35 05/16/18 10:35 General appearance: Present: no acute distress - Head Head Exam: Present: normal inspection, normocephalic - Eye Eye exam: Present: scleral icterus - Respiratory Respiratory exam: Present: decreased breath sounds Additional comments: Occasional rhonchi. - Cardiovascular Cardiovascular exam: Present: +S1, +S2, tachycardia - GI/Abdominal Exam GI/Abdominal exam: Present: diminished bowel sounds, distended, soft - Extremities Exam Extremities exam: Present: normal capillary refill, normal inspection - Neurological Exam Additional comments: Awakens but falls back to sleep quickly. Not alert enough to follow commands at this time. - Skin Skin exam: Present: dry, pallor, warm Internal Medicine - CN: Reslt - Labs CBC & Chem 7: 05/15/18 13:20 05/16/18 00:43 Labs: BMP 05/16/18 00:43 Sodium 131 L Potassium 4.1 Chloride 92 L Carbon Dioxide 15 L BUN 15 Creatinine 0.80 Glucose 442 H Calcium 10.3 - ABG Interpretation ABG results: PT/INR, D-dimer PT 13.2 Seconds (9.4-12.1) H 05/15/18 13:20 Consult Discharge Plan - Plan Referrals: Chaz Mccabe MD [Primary Care Provider] - Palliative Quality Palliative Quality: Screen for Code Status: Yes, Screen for Goals of Care: Yes, Screen for Pain: Yes, If Pain Regimen Started, Initiate Bowel Regimen: Yes, Screen for Nausea/Vomitting: Yes Code Status: 05/15/18 15:24 Resuscitation Status: Active [RES] Routine Comment: Resuscitation Status: [id number]
[2018-05-16] MEDS ORDERED: *HR* FentaNYL PATCH 25 MCG PATCH TD SCH (12:45)
[2018-05-16] MEDS: Ondansetron 4 MG/2 ML VIAL IVP SCH ×2 (14:05→18:18)
--- NOTE | 2018-05-16 17:11 | Internal Med Progress Note ---
Hospitalist Progress Note - Encounter Date of Encounter: 05/16/18 Time of Encounter: 08:00 - Subjective Interval History: patient was seen at bedside, drowsy, reports that she is thirsty. she has fluctuating awareness. denies abdominal pain, denies N/V/D. she denies fever, chills, chest pain, SOB, falls, leg swelling or calf tenderness. - Exam Vitals: Temp Pulse Resp BP Pulse Ox 97.3 F L 107 16 133/81 91 05/16/18 15:29 05/16/18 15:29 05/16/18 15:29 05/16/18 15:29 05/16/18 15:29 Exam: General: Patient is alert, oriented to self and place, drowsy, looks ill Head: atraumatic, normocephalic, Eye: normal appearance, PERRL, no scleral icterus, no conjunctival injection ENT: mucous membranes Dry, normal external ear exam Neck: normal inspection, trachea midline, full ROM, no carotid bruits Chest: normal inspection, symmetric chest rise Respiratory: Good respiratory effort. Bilateral breath sounds are decreased without wheezing, ve crackles at bilateral MAL Cardiovascular: Regular rate and rhythm. s1 and s2 No clicks, rubs, gallops, or murmors. Abdomen: Bowel sounds present , distended, ve fluid shift, non-tender. musculoskeletal: Spontaneously moving all extremities. no edema, no calf tenderness Skin: warm, dry, intact. Neuro: Alert and oriented x 2 Sensation light touch intact. no focal deficit Psych: Patient's affect is normal - Assessment and Plan (1) Ascites Current Visit: Yes Status: Acute Assessment and Plan: CT abdomen/pelvis shows peritoneal carcinomatosis, large volume ascites, liver mets, right pleural effusion; s/p recent paracentesis; IR consulted for peritoneal PleurX catheter placed- but she was not found to be a candidate palliative consulted for goals of care will continue with pain medications (2) Pancreatic cancer metastasized to liver Current Visit: Yes Status: Chronic Assessment and Plan: recently diagnosed about 1 month ago Patient was seen by her primary oncologist, Dr. Taveras, who felt she is not a candidate for repetitive chemotherapy given her severe symptoms thinking about hospice (3) HTN (hypertension) Current Visit: Yes Status: Chronic Assessment and Plan: monitor BP, now stable; hold diuretics and ACEI for now; (4) Diabetes Current Visit: Yes Status: Chronic Assessment and Plan: Type 1 DM recently diagnosed, about 2 months ago; likely related to pancreatic cancer on levemir 20 units BID and sliding scale was changed to high dose (5) Constipation Current Visit: Yes Status: Chronic Assessment and Plan: due to narcotic pain meds; bowel regimen with Senna Plus and Miralax PRN; (6) Failure to thrive Current Visit: Yes Status: Chronic Assessment and Plan: due to underlying malignancy; continue Marinol and PRN antiemetics; diet as tolerated; (7) Goals of care, counseling/discussion Current Visit: Yes Status: Acute Assessment and Plan: discussed goals of care palliative consulted code status has been changed to [id number] possibly for home hospice in the AM DVT Prophylaxis: heparin SC - Time Spent with Patient Total time spent is greater than 50% in coordination of care (as documented) at patient's floor/unit and/or counseling patient: Internal Medicine: Result - Labs CBC & Chem 7: 05/15/18 13:20 05/16/18 00:43 Labs: BMP 05/16/18 00:43 Sodium 131 L Potassium 4.1 Chloride 92 L Carbon Dioxide 15 L BUN 15 Creatinine 0.80 Glucose 442 H Calcium 10.3 - ABG Interpretation ABG results: PT/INR, D-dimer PT 13.2 Seconds (9.4-12.1) H 05/15/18 13:20 Consult Discharge Plan - Plan Referrals: Chaz Mccabe MD [Primary Care Provider] - (1) Ascites Qualifiers: Ascites type: malignant Qualified Code(s): R18.0 - Malignant ascites (3) HTN (hypertension) Qualifiers: Hypertension type: essential hypertension Qualified Code(s): I10 - Essential (primary) hypertension (4) Diabetes Qualifiers: Diabetes mellitus type: other specified (including ROBERTO) 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
[2018-05-16] MEDS ORDERED: Insulin LISPRO 300 UNITS/3 ML VIAL SQ SCH (21:00)
[2018-05-16] MEDS: MORPHINE SUL Oral CONC 10 MG/0.5 ML ORAL.SYG SL PRN (21:24)
[2018-05-16] MEDS: *HR* Promethazine 25 MG/ML VIAL IVP PRN (21:31)
[2018-05-17] MEDS: Ondansetron 4 MG/2 ML VIAL IVP SCH ×3 (00:35→12:52)
[2018-05-17] MEDS: MORPHINE SUL Oral CONC 10 MG/0.5 ML ORAL.SYG SL PRN ×3 (04:22→15:27)
[2018-05-17] MEDS: *HR* Heparin 5,000 UNIT/ML VIAL SQ SCH ×2 (05:43→13:53)
[2018-05-17] MEDS: Insulin LISPRO 300 UNITS/3 ML VIAL SQ SCH ×2 (08:04→12:54)
--- NOTE | 2018-05-17 08:51 | Discharge Summary ---
Orders not resulted at time of discharge: Pending orders 05/16/18 IR thoracentesis RIGHT [IR] Routine Date of Encounter: 05/17/18 Time of Encounter: 08:47 - Discharge Diagnosis (1) Ascites Priority: Primary Status: Acute Qualifiers: Ascites type: malignant Qualified Code(s): R18.0 - Malignant ascites (2) Pancreatic cancer metastasized to liver Priority: Secondary Status: Chronic (3) HTN (hypertension) Priority: Secondary Status: Chronic Qualifiers: Hypertension type: essential hypertension Qualified Code(s): I10 - Essential (primary) hypertension (4) Diabetes Priority: Secondary Status: Chronic Qualifiers: Diabetes mellitus type: other specified (including ROBERTO) Diabetes mellitus fdc insulin use: with long term care pharmacist use Diabetes mellitus complication status: with hyperglycemia Qualified Code(s): E13.65 - Other specified diabetes mellitus with hyperglycemia; Z79.4 - halfway (current) use of insulin (5) Constipation Priority: Secondary Status: Chronic Qualifiers: Constipation type: drug induced constipation Qualified Code(s): K59.03 - Drug induced constipation (6) Failure to thrive Priority: Secondary Status: Chronic Qualifiers: Failure to thrive age range: in adult Qualified Code(s): R62.7 - Adult failure to thrive (7) Goals of care, counseling/discussion Priority: Secondary Status: Acute Hospital course: Ms. Gonzalez is a 72 year old female with history of metastatic pancreatic adenocarcinoma with liver metastases diagnosed on 05/07/18, who was sent in from oncology office for evaluation of recurrent ascites and placement of possible indwelling peritoneal catheter. IR was consulted Because of peritoneal carcinomatosis and it was found that because of relative modest ascites a Pleurx is not ideal for her. she was also found to have right sided pleural effusion and itwas recommended for her to have thoracocentesis performed. Palliative was consulted due to quick decline. Risk and benefits of thoracocentesis was discussed by palliative team with family and patient. Thoracentesis order cancelled per their request. [facility] referral was initiated by the palliative team for home hospice. pain medications and comfort care mprescriptions were provided by palliative team - Time Spent with Patient Total time spent providing and/or coordinating discharge services: Less than 30 minutes - Discharge Medications Prescriptions: Hyoscyamine SL [Levsin SL] 0.125 mg SL Q4HR PRN #16 tab.subl PRN Reason: upper airway congestion Promethazine [Phenergan] 25 mg RC Q6HR #10 supp.rect FentaNYL PATCH [Duragesic] 1 each TD Q72H 4 Days #2 patch.td72 LORazepam Oral Conc [Ativan Oral Conc] 1 mg PO Q4H PRN 4 Days #15 mls PRN Reason: anxiety/restlessness MORPHINE SUL Oral CONC [Roxanol Oral Conc] 10 mg PO Q1H PRN 4 Days #15 oral.syg PRN Reason: Breakthrough Pain Home Medications: Cetirizine HCl [Zyrtec] 10 mg PO DAILY 05/05/18 [History] Enalapril Maleate [Vasotec] 10 mg PO BID 05/05/18 [History] Insulin Glargine,Hum.rec.anlog [Lantus Solostar] 50 units SQ HS 05/05/18 [ History] Insulin LISPRO [HumaLOG] 8 units SQ TIDWM MDD plus sliding scale 05/05/18 [ History] PARoxetine HCl [Paroxetine HCl] 10 mg PO DAILY 05/05/18 [History] Ranitidine HCl [Acid Field Coil Winder] 150 mg PO DAILY 05/05/18 [History] Ondansetron [Zofran] 4 mg PO Q6HR PRN 7 Days #30 vial 05/10/18 [Rx] Sennosides/Docusate Sodium [Senna Plus] 1 each PO BID 10 Days #20 tablet [Rx] Furosemide [Lasix] 40 mg PO BID PRN 05/15/18 [History] Ibuprofen [Ibu] 600 mg PO Q6H PRN 05/15/18 [History] Spironolactone [Aldactone] 50 mg PO BID 05/15/18 [History] FentaNYL PATCH [Duragesic] 1 each TD Q72H 4 Days #2 patch.td72 05/17/18 [Rx] Hyoscyamine SL [Levsin SL] 0.125 mg SL Q4HR PRN #16 tab.subl 05/17/18 [Rx] LORazepam Oral Conc [Ativan Oral Conc] 1 mg PO Q4H PRN 4 Days #15 mls 05/17/18 [ Rx] MORPHINE SUL Oral CONC [Roxanol Oral Conc] 10 mg PO Q1H PRN 4 Days #15 oral.syg 05/17/18 [Rx] Promethazine [Phenergan] 25 mg RC Q6HR #10 supp.rect 05/17/18 [Rx] Allergies/Adverse Reactions: 3 Allergy/AdvReac Type Severity Reaction Status Date / Time No Known Allergies Allergy Verified 05/05/18 13:41 Date of admission: 05/15/18 14:56 Primary care physician: Chaz Mccabe MD Consults: 05/15/18 15:28 Consult to Interventional Radiology [CONS] Routine Consulting Provider: Radiology Interventional Cols Reason for Consult: Malignant ascites, recurrent; needs peritoneal catheter for comfort; Call Completed: No 05/15/18 17:17 Consult to Nutrition [CONS] Stat Comment: Consulting Provider: NUTRITION Reason for Dietary Consult: MST Score Consult to Oncology [CONS] Stat Consulting Provider: [facility] Reason for Consult: pt seen for assessment sent to ER Call Completed: No 05/16/18 08:57 Consult to Palliative Care [CONS] Routine Comment: Consulting Provider: [facility] Reason for Consult: hospice, was seen on last admission in process for hospice Call Completed: No - Constitutional Vitals: Temp Pulse Resp BP Pulse Ox 97.7 F 89 14 143/82 97 05/17/18 07:23 05/17/18 07:23 05/17/18 07:23 05/17/18 07:23 05/17/18 07:23 Exam: General: Patient is alert, oriented to self and place, drowsy, looks ill Head: atraumatic, normocephalic, Eye: normal appearance, PERRL, no scleral icterus, no conjunctival injection ENT: mucous membranes Dry, normal external ear exam Neck: normal inspection, trachea midline, full ROM, no carotid bruits Chest: normal inspection, symmetric chest rise Respiratory: Good respiratory effort. Bilateral breath sounds are decreased without wheezing, ve crackles at bilateral MAL Cardiovascular: Regular rate and rhythm. s1 and s2 No clicks, rubs, gallops, or murmors. Abdomen: Bowel sounds present , distended, ve fluid shift, non-tender. musculoskeletal: Spontaneously moving all extremities. no edema, no calf tenderness Skin: warm, dry, intact. Neuro: Alert and oriented x 2 Sensation light touch intact. no focal deficit Psych: Patient's affect is normal - Patient Status Disposition: Hospice - Home Condition: Serious Functional capacity at discharge: bed bound Overall status at discharge: patient is not back to baseline - Discharge Instructions Follow Up With: Chaz Mccabe MD [Primary Care Provider] - - Diet and Activity Activity: other Diet: diabetic diet
[2018-05-17] MEDS: Insulin DETEMIR 100 UNIT/ML X5UNITS SQ SCH (09:06)
[2018-05-17] MEDS: Sennosides/Docusate Sodium TABLET PO SCH (09:06)
[2018-05-17] MEDS: *HR* Promethazine 25 MG/ML VIAL IVP PRN (09:08)
--- NOTE | 2018-05-17 09:47 | Physician Discharge Referral ---
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 For more information, call the [place] Tobacco Quit Line at 0-650-QRCY-NOW. - Diet/Nutrition Diet/Nutrition Orders: Mechanical Soft (as tolerated) - Activity Activity Orders: Bedrest - Services Needed Following services are medically necessary services: Nursing, Home Health Aide - Transfer Medications Prescriptions: Hyoscyamine SL [Levsin SL] 0.125 mg SL Q4HR PRN #16 tab.subl PRN Reason: upper airway congestion Promethazine [Phenergan] 25 mg RC Q6HR #10 supp.rect FentaNYL PATCH [Duragesic] 1 each TD Q72H 4 Days #2 patch.td72 LORazepam Oral Conc [Ativan Oral Conc] 1 mg PO Q4H PRN 4 Days #15 mls PRN Reason: anxiety/restlessness MORPHINE SUL Oral CONC [Roxanol Oral Conc] 10 mg PO Q1H PRN 4 Days #15 oral.syg PRN Reason: Breakthrough Pain Home Medications: Ascorbate Calcium [Vitamin C] 500 mg PO QPM 05/05/18 [History] Calcium Carbonate/Vitamin D3 [Calcium 500 + Vit D Caplet] 1 tab PO QPM 05/05/18 [History] Cetirizine HCl [Zyrtec] 10 mg PO DAILY 05/05/18 [History] Enalapril Maleate [Vasotec] 10 mg PO BID 05/05/18 [History] Ferrous Sulfate [Iron] 325 mg PO QPM 05/05/18 [History] Insulin Glargine,Hum.rec.anlog [Lantus Solostar] 50 units SQ HS 05/05/18 [ History] Insulin LISPRO [HumaLOG] 8 units SQ TIDWM MDD plus sliding scale 05/05/18 [ History] PARoxetine HCl [Paroxetine HCl] 10 mg PO DAILY 05/05/18 [History] Ranitidine HCl [Acid Logging Contractor] 150 mg PO DAILY 05/05/18 [History] Metoclopramide [Reglan] 5 mg PO QIDAC PRN 7 Days #30 vial 05/10/18 [Rx] Ondansetron [Zofran] 4 mg PO Q6HR PRN 7 Days #30 vial 05/10/18 [Rx] OxyCODONE Immed Rel [Roxicodone 5 MG] 5 mg PO Q6H PRN 7 Days #30 tablet [Rx] Sennosides/Docusate Sodium [Senna Plus] 1 each PO BID 10 Days #20 tablet [Rx] Dronabinol [Marinol] 5 mg PO DAILY 05/15/18 [History] Furosemide [Lasix] 40 mg PO BID PRN 05/15/18 [History] Ibuprofen [Ibu] 600 mg PO Q6H PRN 05/15/18 [History] Spironolactone [Aldactone] 50 mg PO BID 05/15/18 [History] FentaNYL PATCH [Duragesic] 1 each TD Q72H 4 Days #2 patch.td72 05/17/18 [Rx] Hyoscyamine SL [Levsin SL] 0.125 mg SL Q4HR PRN #16 tab.subl 05/17/18 [Rx] LORazepam Oral Conc [Ativan Oral Conc] 1 mg PO Q4H PRN 4 Days #15 mls 05/17/18 [ Rx] MORPHINE SUL Oral CONC [Roxanol Oral Conc] 10 mg PO Q1H PRN 4 Days #15 oral.syg 05/17/18 [Rx] Promethazine [Phenergan] 25 mg RC Q6HR #10 supp.rect 05/17/18 [Rx] Allergies/Adverse Reactions: 3 Allergy/AdvReac Type Severity Reaction Status Date / Time No Known Allergies Allergy Verified 05/05/18 13:41 Certification: Further, I certify that my clinical findings support that this patient is homebound (i.e. absences from home require considerable and taxing effort and are for medical reasons or christian services or infrequently or short duration when for other reasons) because: Homebound Reason: Leaving home requires considerable and taxing effort due to condition Attestation: My signature below is to certify that this patient is under my care and that I, or nurse practitioner, or a physician's assistant maintenance manager working with me, has a face-to -face encounter with this patient.
--- NOTE | 2018-05-17 11:04 | Palliative Progress Note ---
Date of Encounter: 05/17/18 Time of Encounter: 11:00 - Assessment and plan (1) Abdominal pain Current Visit: No Status: Acute Assessment and plan: Tolerating Fentanyl patch well, has utilized Roxanol x2 last 24 hours. Prescriptions completed at faxed to pharmacy. Hospice to follow Qualifiers: Abdominal location: unspecified location Qualified Code(s): R10.9 - Unspecified abdominal pain (2) Nausea & vomiting Current Visit: No Status: Acute Assessment and plan: Appears improved - no vomiting last night or this am. Continue antiemetics. Will add Promethazine suppository on discharge in case she is unable to take po meds. Qualifiers: Qualified Code(s): R11.2 - Nausea with vomiting, unspecified (3) Goals of care, counseling/discussion Current Visit: Yes Status: Acute Assessment and plan: Discussed with son, friend - will be discharged home today with [facility] once equipment is in place. D/W Dr. Smith. (4) Pancreatic cancer metastasized to liver Current Visit: Yes Status: Chronic - Time Spent With Patient Total time spent is greater than 50% in coordination of care (as documented) at patient's floor/unit and/or counseling patient: - Subjective Interval history: Patient sleeping quietly - awakens with touch, but drifts back to sleep. Son/ friend at bedside - states she was very alert and interactive yesterday with visitors, son states she was telling everyone "goodbye", and giving them instructions on things she would like done. Appears to be tolerating Fentanyl patch well. Continued to take po fluids yesterday. - Constitutional Vitals: Abnormal lab results WBC 12.1 K/mcL (4.3-11.1) H D 05/15/18 13:20 Plt Count 443 K/mcL (140-400) H 05/15/18 13:20 Neutrophils # 9.4 K/mcL (1.6-8.9) H 05/15/18 13:20 PT 13.2 Seconds (9.4-12.1) H 05/15/18 13:20 Sodium 131 mEq/L (136-145) L 05/16/18 00:43 Chloride 92 mEq/L (98-107) L 05/16/18 00:43 Carbon Dioxide 15 mEq/L (23-29) L 05/16/18 00:43 Glucose 442 mg/dL (70-105) H 05/16/18 00:43 POC Glucose 238 mg/dL (70-99) H 05/16/18 21:06 Magnesium 1.5 mg/dL (1.6-2.6) L 05/16/18 00:43 AST 6 Units/L (13-39) L 05/15/18 13:20 ALT 5 Units/L (7-52) L 05/15/18 13:20 Alkaline Phosphatase 152 Units/L (34-104) H 05/15/18 13:20 Serum Total Protein 6.1 g/dL (6.4-8.9) L 05/15/18 13:20 Albumin 3.1 g/dL (3.5-5.7) L 05/15/18 13:20 Albumin/Globulin Ratio 1.0 (1.1-2.2) L 05/15/18 13:20 Lipase < 3 Units/L (11-82) L 05/15/18 13:20 General appearance: Present: no acute distress - Respiratory Respiratory exam: Present: decreased breath sounds Additional comments: Rales bilateral lower lobes - Cardiovascular Cardiovascular exam: Present: irregular rhythm, +S1, +S2 - GI/Abdominal GI/Abdominal exam: Present: diminished bowel sounds, distended, tenderness - Extremities Exam Extremities exam: Present: normal capillary refill, normal inspection - Neurological Exam Additional comments: Mostly lethargic, does awaken with touch. Non verbal this am. - Skin Skin exam: Present: dry, pallor, warm Palliative Quality Palliative Quality: Screen for Code Status: Yes, Screen for Goals of Care: Yes, Screen for Pain: Yes, If Pain Regimen Started, Initiate Bowel Regimen: Yes, Screen for Nausea/Vomitting: Yes Code Status: 05/15/18 15:24 Resuscitation Status: Active [RES] Routine Comment: Resuscitation Status: [id number] 05/16/18 12:16 DNR [Resuscitation Status: Active] [RES] Routine Comment: Resuscitation Status: DNR-Comfort Care - Labs CBC & Chem 7: 05/15/18 13:20 05/16/18 00:43 Labs: Laboratory Results - last 24 hr 05/16/18 05/16/18 05/16/18 11:40 16:27 21:06 POC Glucose 391 H 368 H 238 H - ABG Interpretation ABG results: PT/INR, D-dimer PT 13.2 Seconds (9.4-12.1) H 05/15/18 13:20 Consult Discharge Plan - Plan Referrals: Chaz Mccabe MD [Primary Care Provider] - Prescriptions: Hyoscyamine SL [Levsin SL] 0.125 mg SL Q4HR PRN #16 tab.subl PRN Reason: upper airway congestion Promethazine [Phenergan] 25 mg RC Q6HR #10 supp.rect FentaNYL PATCH [Duragesic] 1 each TD Q72H 4 Days #2 patch.td72 LORazepam Oral Conc [Ativan Oral Conc] 1 mg PO Q4H PRN 4 Days #15 mls PRN Reason: anxiety/restlessness MORPHINE SUL Oral CONC [Roxanol Oral Conc] 10 mg PO Q1H PRN 4 Days #15 oral.syg PRN Reason: Breakthrough Pain
[2018-05-17 13:53] VITALS: BP 117/85
--- NOTE | 2018-05-20 14:32 | Electrocardiograph Report ---
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
== END 2018-05-17 16:18 | disposition hospice, home (50) ==
LOC: 3ANU 13:01 → EMEROOARM 13:01 → SUATTDRO 14:56 → 3ANU 15:22
PROVIDERS: ADMIT Student in an Organized Health Care Education/Training Program; ATTEND Internal Medicine